=== PATIENT | female | born 1985 | race Hispanic/Latino ===

== ENCOUNTER 2017-07-21 19:40 | Emergency (ER) | payer OTHER ==
[2017-07-21 20:18] LABS: #Basophils 0.1 thou/uL (0.0-0.2); #Eosinphils 0.3 thou/uL (0.0-0.7); #Lymphocytes 2.7 thou/uL (1.20-3.40); #Monocytes 0.5 thou/uL (0.11-0.59); #Neutrophils 4.1 thou/uL (1.40-6.50); %Basophils 1.3 % (0.0-1.0); %Eosinophils 3.5 % (0.0-10.0); %Lymphocytes 35.1 % (21.0-51.0); %Monocytes 6.8 % (0.0-10.0); Hematocrit 39.8 % (36.0-47.0); Mean Platelet Volume 7.6 fL (7.4-10.4); Red Blood Cell (RBC) Count 4.93 mill/uL (4.20-5.40); White Blood Cell (WBC) Count 7.6 thou/uL (4.8-10.8)
[2017-07-21 20:30] LABS: ALT (SGPT) 21 U/L (8-55); AST (SGOT) 21 U/L (5-34); Alkaline Phosphatase 102 U/L (40-150); Anion Gap 14 mmol/L (10-20); BUN (Urea Nitrogen) 10 mg/dL (7.0-18.7); Bilirubin, Total 0.3 mg/dL (0.2-1.2); Calc. Creatinine Clearance 0 mL/min (70-130); Calcium 8.5 mg/dL (7.8-10.44); Carbon Dioxide 22 mmol/L (22-29); Chloride 109 mmol/L (98-107); Estimated GFR-MDRD Greater than 90; Globulin 3.3 g/dL (2.4-3.5); Lipase 31 U/L (8-78); Protein, Total 7.1 g/dL (6.0-8.3)
[2017-07-21 20:31] LABS: Troponin I Less than 0.010 ng/mL (< 0.028)
--- NOTE | 2017-07-21 21:33 | RAD ---
PORTABLE CHEST ONE VIEW 07/21/17 at 8:16 p.m. HISTORY: Syncope. FINDINGS/IMPRESSION: Comparison is made with the exam of 02/19/17. The heart size is enlarged. The lungs are expanded without focal areas of consolidation, pneumothora x, raven pulmonary edema or pleural effusions. IMPRESSION: No acute process. POS: [facility]
[2017-07-21 21:35] LABS: Bilirubin Negative (Negative); Blood, Urine Moderate (Negative); Glucose, Urine (Dipstick) Negative (Negative); Ketone, Urine Negative (Negative); Nitrite Negative (Negative); Protein, Urine (Dipstick) 30 mg/dL (Neg-Trace); Urobilinogen 0.2 mg/dL (0.2-1.0)
[2017-07-21 21:42] LABS: WBC/HPF None Seen HPF (0-3)
[2017-07-21 21:43] LABS: Amphetamine Not Detected (NotDetected); Bacteria/HPF 1+ HPF (None Seen); Methadone Not Detected (NotDetected); Methamphetamine Not Detected (NotDetected)
--- NOTE | 2017-07-21 23:14 | CT ---
CT PULMONARY ANGIOGRAM WITH IV CONTRAST AND 3D POSTPROCESSIN07/21/17 HISTORY: Elevated D-dimer, chest pain, right upper quadrant pain. FINDINGS: There is good contrast opacification of the pulmonary artery vasculature without filling defects to suggest pulmonary embolism. The thoracic aorta is well opacified without aneurysmal dissection. No p leural or pericardial effusions are seen. No pneumothoraces, focal areas of consolidation, or lung m asses are identified. There is subsegmental atelectatic changes in the lower lung kimball. Upper abdo naz tomograms demonstrate changes of cholecystectomy. There are mild degenerative changes in the s pine. IMPRESSION: No CT evidence of pulmonary embolism. POS: [facility]
--- OUTSIDE RECORDS SUMMARY | 2017-07-27 10:26 | XMS | Clinical Summary ---
:1985 Author Organization [facility] Address [address] [place] [address] Phone Care Team Providers Name Role Phone , Primary Care Provider Unavailable Allergies Not on File Current Medications Not on file Active Problems Not on file Social History Tobacco Use Types Packs/Day Years Used Date Never Assessed Sex Assigned at Date Recorded Not on file Last Filed Vital Signs Not on file Plan of Treatment Not on file Results Not on filefrom Last 3 Months
== END 2017-07-21 22:07 | disposition home or self-care (01) ==
LOC: SCSER 19:40
DX: R42 Dizziness and giddiness (principal); G47.30 Sleep apnea, unspecified; K21.9 Gastro-esophageal reflux disease without esophagitis; E11.9 Type 2 diabetes mellitus without complications; I11.0 Hypertensive heart disease with heart failure; I50.9 Heart failure, unspecified; I42.9 Cardiomyopathy, unspecified; Z79.84 Long term (current) use of oral hypoglycemic drugs; Z79.899 Other long term (current) drug therapy
CPT/HCPCS: 71010; 71275; 80053; 80306; 81003; 81015; 81025; 82553; 83690; 83880; 84484; 85025; 85379; 93005

== ENCOUNTER 2017-09-01 22:56 | Emergency (ER) | payer OTHER ==
[2017-09-01] MEDS ORDERED: Acetaminophen/Codeine 30-300mg Tablet ONE (23:27)
[2017-09-01 23:37] LABS: Bilirubin Negative (Negative); Blood, Urine Moderate (Negative); Glucose, Urine (Dipstick) Negative (Negative); Ketone, Urine Negative (Negative); Nitrite Negative (Negative); Protein, Urine (Dipstick) 30 mg/dL (Neg-Trace); Urobilinogen 0.2 mg/dL (0.2-1.0)
[2017-09-01 23:51] LABS: Bacteria/HPF None Seen HPF (None Seen); Hyaline Casts/LPF 0-3 HYALINE CAST LPF (0-3 Hyaline); WBC/HPF 0-3 HPF (0-3)
--- NOTE | 2017-09-02 00:02 | CT ---
CT ABDOMEN AND PELVIS WITHOUT CONTRAST 09/01/17 HISTORY: Pain. COMPARISON: CT stone protocol 09/29/16. FINDINGS: Mild atelectasis in the lung bases. No pericardial effusion. Liver is enlarged. There is mild edema within the proximal small bowel mesentery and increased number of lymph nodes alt emma they were not pathologically enlarged. This is similar. On the right adnexa, is a new cystic structure. There is a large fat containing likely an incisional hernia which is similar. No inflammation. No nep hroureterolithiasis or hydroureteronephrosis. No secondary evidence of recently passed stone. No dilated loops of large or small bowel. The appendix is visualized and is normal. There is moderate degenerative disc space disease at L5-S1 with end plate sclerosis. IMPRESSION: 1. No acute inflammatory process abdomen or pelvis. 2. Similar appearance of the low grade inflammatory stranding of the small bowel mesentery. 3. No nephroureterolithiasis or hydroureteronephrosis. No secondary evidence of a recently passe d stone. 4. Unchanged appearance of the noninflamed fat containing incisional hernia. POS: [facility]
== END 2017-09-02 00:12 | disposition home or self-care (01) ==
LOC: SCSER 22:56
DX: M54.5 Low back pain (principal); E78.5 Hyperlipidemia, unspecified; G47.30 Sleep apnea, unspecified; K21.9 Gastro-esophageal reflux disease without esophagitis; I11.0 Hypertensive heart disease with heart failure; I50.9 Heart failure, unspecified; Z79.899 Other long term (current) drug therapy; Z79.84 Long term (current) use of oral hypoglycemic drugs
CPT/HCPCS: 74176; 81003; 81015; 81025

== ENCOUNTER 2017-10-19 16:18 | Emergency (ER) | payer OTHER ==
[2017-10-19] MEDS ORDERED: Proparacaine 0.5% Opth 15 ML BOT ONE (16:35)
[2017-10-19] MEDS ORDERED: Fluorescein Opthalmic Strip ONE (16:35)
[2017-10-19] MEDS ORDERED: Acetaminophen 500 MG TAB ONE (17:09)
== END 2017-10-19 17:53 | disposition home or self-care (01) ==
LOC: ERS 16:18
DX: H57.12 Ocular pain, left eye (principal); E78.5 Hyperlipidemia, unspecified; E11.9 Type 2 diabetes mellitus without complications; K21.9 Gastro-esophageal reflux disease without esophagitis; I42.9 Cardiomyopathy, unspecified; I11.0 Hypertensive heart disease with heart failure; I50.9 Heart failure, unspecified; G47.30 Sleep apnea, unspecified; Z79.84 Long term (current) use of oral hypoglycemic drugs; Z79.899 Other long term (current) drug therapy
CPT/HCPCS: 99283

== ENCOUNTER 2017-11-05 12:51 | Outpatient (CLI) | payer OTHER ==
--- NOTE | 2017-11-05 14:31 | ULT ---
VENOUS DOPPLER ULTRASOUND OF THE RIGHT LOWER EXTREMITY: Date: 11/05/17 HISTORY: Right lower extremity pain, right leg pain. TECHNIQUE: Duke scale ultrasound with color flow and spectral Doppler imaging of the deep venous systems of the right lower extremity was performed. FINDINGS: There is good flow, compression, and augmentation noted in the right common femoral, femoral, deep fe moral, popliteal, posterior tibial, and greater saphenous veins. IMPRESSION: No evidence of deep venous thrombosis in the right lower extremity. POS: [facility]
== END 2017-11-05 12:52 | disposition home or self-care (01) ==
LOC: ULT 12:51
PROVIDERS: ATTEND Family Medicine
DX: M79.604 Pain in right leg (principal)
CPT/HCPCS: 36415; 85379

== ENCOUNTER 2017-11-09 22:30 | Emergency (ER) | payer OTHER ==
[2017-11-09 22:54] LABS: #Eosinphils 0.3 thou/uL (0.0-0.7); #Lymphocytes 2.7 thou/uL (1.20-3.40); #Monocytes 0.6 thou/uL (0.11-0.59); #Neutrophils 4.8 thou/uL (1.40-6.50); %Basophils 0.3 % (0.0-1.0); %Eosinophils 3.1 % (0.0-10.0); %Lymphocytes 32.2 % (21.0-51.0); %Monocytes 6.6 % (0.0-10.0); %Neutrophils 57.8 % (42.0-75.0); Hemoglobin 13.2 g/dL (12.0-16.0); Mean Corpuscular HGB CONC 34.3 g/dL (32.0-36.0); Mean Corpuscular Hemoglobin 27.4 pg (27.0-31.0); Mean Corpuscular Volume 80.1 fl (81.0-99.0); Mean Platelet Volume 7.8 fL (7.4-10.4); Platelet Count 186 thou/uL (130-400); Red Blood Cell (RBC) Count 4.81 mill/uL (4.20-5.40); White Blood Cell (WBC) Count 8.3 thou/uL (4.8-10.8)
[2017-11-09 23:16] LABS: ALT (SGPT) 18 U/L (8-55); AST (SGOT) 18 U/L (5-34); Albumin 4.1 g/dL (3.5-5.0); Alkaline Phosphatase 116 U/L (40-150); Anion Gap 12 mmol/L (10-20); BUN (Urea Nitrogen) 10 mg/dL (7.0-18.7); Bilirubin, Total 0.2 mg/dL (0.2-1.2); Calc. Creatinine Clearance 0 mL/min (70-130); Calcium 9.5 mg/dL (7.8-10.44); Carbon Dioxide 25 mmol/L (22-29); Chloride 106 mmol/L (98-107); Estimated GFR-MDRD 81; Globulin 3.3 g/dL (2.4-3.5); Glucose 137 mg/dL (70-105); Potassium 4.1 mmol/L (3.5-5.1); Protein, Total 7.4 g/dL (6.0-8.3); Sodium 139 mmol/L (136-145)
[2017-11-09 23:21] LABS: CKMB 3.5 ng/mL (0-6.6); Troponin I Less than 0.010 ng/mL (< 0.028)
--- NOTE | 2017-11-09 23:21 | RAD ---
TWO VIEW CHEST: 11/09/17 HISTORY: Chest pain. The lungs are clear. No infiltrate identified. Heart and mediastinum unremarkable. IMPRESSION: No acute process identified. POS: [facility]
[2017-11-10 01:07] LABS: BHCG - Serum Negative (NEGATIVE); Pregs Control Background? CLEAR/WHITE (CLR/WHITE); Pregs Control Bar Appear? YES (CONTROL BAR)
--- NOTE | 2017-11-10 08:17 | CT ---
PRELIMINARY REPORT/[facility]/EMERGENCY AFTER HOURS PROCEDURE: EXAM: CT Angiography Chest With Intravenous Contrast CLINICAL HISTORY: 32 years old, female; Pain; Chest pain; Patient HX: Er 3; F32 presents to ed C/O cp x3 days. Pt does have a HX of this cp. Pt has had a stress test that was normal and a heart cath many years ago. No HX of mi or stents. Pmhx includes HTN, chf, sleep apnea, gerd, and dm. Denies smoking HX. TECHNIQUE: Axial computed tomographic angiography images of the chest with intravenous contrast using pulmonary embolism protocol. COMPARISON: No relevant prior studies available. FINDINGS: Pulmonary arteries: No pulmonary embolism. Aorta: No acute findings. Lungs: Mild bibasilar atelectasis and/or scarring. Pleural space: Normal. No significant effusion. No pneumothorax. Heart: Mild four-chamber cardiac enlargement. Mediastinum: Small-sized hiatal hernia. Bones/joints: No acute fracture. No dislocation. Soft tissues: Normal. Lymph nodes: Normal. Gallbladder and bile ducts: Gallbladder is surgically absent. IMPRESSION: 1. No pulmonary embolism. 2. Incidental/non-acute findings are described above. Thank you for allowing us to participate in the care of your patient. Dictated and Authenticated by: José Miguel Vergara MD 11/10/2017 2:14 AM Central Time ([place] & [place]) FINAL REPORT CT PULMONARY ANGIOGRAM WITH IV CONTRAST AND 2D POST PROCESSING: I agree with the preliminary report given by Dr. José Miguel Vergara of [facility]. POS: [facility]
[2017-11-10] MEDS ORDERED: ISOVUE-370 76%-LOCM 1 ML ONE (13:08)
--- NOTE | 2018-01-05 15:37 | EKG ---
Test Reason : Blood Pressure : / mmHG Vent. Rate : 075 BPM Atrial Rate : 075 BPM P-R Int : 174 ms QRS Dur : 102 ms QT Int : 384 ms P-R-T Axes : 012 011 039 degrees QTc Int : 428 ms Normal sinus rhythm Cannot rule out Inferior infarct , age undetermined Abnormal ECG Confirmed by NOE BEGUM D.O. ([id number]), copy editor LEO GREENE ([id number]) on 01/05/2018 3:36:54 PM Referred By: Confirmed By:NOE BEGUM D.O.
== END 2017-11-10 03:46 | disposition home or self-care (01) ==
LOC: ERS 22:30
DX: R07.9 Chest pain, unspecified (principal); E78.5 Hyperlipidemia, unspecified; E11.9 Type 2 diabetes mellitus without complications; G47.30 Sleep apnea, unspecified; I42.9 Cardiomyopathy, unspecified; I11.0 Hypertensive heart disease with heart failure; I50.9 Heart failure, unspecified; K21.9 Gastro-esophageal reflux disease without esophagitis; Z79.84 Long term (current) use of oral hypoglycemic drugs; Z79.899 Other long term (current) drug therapy
CPT/HCPCS: 36415; 71046; 71275; 80053; 82553; 84484; 84703; 85025; 85379; 93005

== ENCOUNTER 2018-01-06 13:13 | Emergency (ER) | payer SELFPAY ==
[2018-01-06 13:39] LABS: #Eosinphils 0.1 thou/uL (0.0-0.7); #Lymphocytes 1.9 thou/uL (1.20-3.40); #Monocytes 0.4 thou/uL (0.11-0.59); #Neutrophils 3.7 thou/uL (1.40-6.50); %Lymphocytes 30.8 % (21.0-51.0); %Monocytes 5.8 % (0.0-10.0); %Neutrophils 61.4 % (42.0-75.0); Hemoglobin 12.3 g/dL (12.0-16.0); Mean Corpuscular HGB CONC 34.7 g/dL (32.0-36.0); Mean Corpuscular Hemoglobin 27.4 pg (27.0-31.0); Mean Corpuscular Volume 78.9 fl (81.0-99.0); Mean Platelet Volume 7.1 fL (7.4-10.4); Platelet Count 164 thou/uL (130-400); RBC Distribution Width 13.5 % (11.5-14.5); Red Blood Cell (RBC) Count 4.49 mill/uL (4.20-5.40); White Blood Cell (WBC) Count 6.1 thou/uL (4.8-10.8)
--- NOTE | 2018-01-06 13:48 | RAD ---
PORTABLE CHEST 1 VIEW: Date: 01/06/18 Time: 1325 hours HISTORY: Chest pain. FINDINGS: Comparison made with exam of 07/21/17. The heart size is borderline. No focal areas of consolidation, pneumothorax, raven pulmonary edema, o r pleural effusions are seen. IMPRESSION: No radiographic evidence of acute cardiopulmonary process. POS: [facility]
[2018-01-06 13:55] LABS: Anion Gap 9 mmol/L (10-20); BUN (Urea Nitrogen) 9 mg/dL (7.0-18.7); Calc. Creatinine Clearance 0 mL/min (70-130); Carbon Dioxide 28 mmol/L (22-29); Chloride 106 mmol/L (98-107); Estimated GFR-MDRD Greater than 90; Glucose 128 mg/dL (70-105); Potassium 3.5 mmol/L (3.5-5.1); Sodium 139 mmol/L (136-145)
[2018-01-06 13:58] LABS: CKMB 2.6 ng/mL (0-6.6); Troponin I Less than 0.010 ng/mL (< 0.028)
== END 2018-01-06 14:36 | disposition home or self-care (01) ==
LOC: ERS 13:13
DX: M94.0 Chondrocostal junction syndrome [Tietze] (principal); K21.9 Gastro-esophageal reflux disease without esophagitis; I11.0 Hypertensive heart disease with heart failure; I50.9 Heart failure, unspecified; E78.5 Hyperlipidemia, unspecified
CPT/HCPCS: 36415; 71045; 80048; 82553; 84484; 85025; 93005; 94640; J7620

== ENCOUNTER 2018-01-13 21:04 | Emergency (ER) | payer OTHER ==
[2018-01-13 23:09] LABS: #Eosinphils 0.2 thou/uL (0.0-0.7); #Lymphocytes 2.7 thou/uL (1.20-3.40); #Monocytes 0.7 thou/uL (0.11-0.59); #Neutrophils 5.6 thou/uL (1.40-6.50); %Basophils 0.4 % (0.0-1.0); %Eosinophils 1.7 % (0.0-10.0); %Monocytes 7.6 % (0.0-10.0); %Neutrophils 61.2 % (42.0-75.0); Hemoglobin 12.3 g/dL (12.0-16.0); Mean Corpuscular HGB CONC 34.2 g/dL (32.0-36.0); Mean Corpuscular Hemoglobin 26.9 pg (27.0-31.0); Mean Corpuscular Volume 78.6 fl (81.0-99.0); Platelet Count 186 thou/uL (130-400); RBC Distribution Width 13.7 % (11.5-14.5); Red Blood Cell (RBC) Count 4.57 mill/uL (4.20-5.40); White Blood Cell (WBC) Count 9.2 thou/uL (4.8-10.8)
[2018-01-13 23:30] LABS: ALT (SGPT) 16 U/L (8-55); AST (SGOT) 17 U/L (5-34); Alkaline Phosphatase 93 U/L (40-150); Anion Gap 12 mmol/L (10-20); BUN (Urea Nitrogen) 9 mg/dL (7.0-18.7); Bilirubin, Total 0.4 mg/dL (0.2-1.2); CK (CPK) 191 U/L (29-168); Calc. Creatinine Clearance 0 mL/min (70-130); Calcium 9.1 mg/dL (7.8-10.44); Carbon Dioxide 25 mmol/L (22-29); Chloride 105 mmol/L (98-107); Estimated GFR-MDRD Greater than 90; Glucose 104 mg/dL (70-105); Potassium 3.6 mmol/L (3.5-5.1); Sodium 138 mmol/L (136-145)
[2018-01-13 23:33] LABS: CKMB 2.2 ng/mL (0-6.6); Troponin I Less than 0.010 ng/mL (< 0.028)
--- NOTE | 2018-01-14 00:03 | RAD ---
FRONTAL VIEW CHEST: 01/13/18 COMPARISON: 01/06/18 INDICATION: Chest pain. FINDINGS: The cardiac silhouette is accentuated by portable technique. There is no consolidation, effusion or d iscrete pneumothorax. Chest is similar appearing to 01/06/18. IMPRESSION: No focal consolidation. POS: [facility]
--- NOTE | 2018-02-26 22:13 | EKG ---
Test Reason : Blood Pressure : / mmHG Vent. Rate : 072 BPM Atrial Rate : 072 BPM P-R Int : 188 ms QRS Dur : 098 ms QT Int : 410 ms P-R-T Axes : 019 -13 086 degrees QTc Int : 448 ms Normal sinus rhythm Inferior infarct , age undetermined Possible Anterior infarct , age undetermined Abnormal ECG Confirmed by NOE BEGUM D.O. ([id number]), editor producer LEO GREENE ([id number]) on 02/26/2018 10:13:05 PM Referred By: Confirmed By:NOE BEGUM D.O.
== END 2018-01-14 00:51 | disposition home or self-care (01) ==
LOC: ERS 21:04
DX: R06.02 Shortness of breath (principal); T43.695A Adverse effect of other psychostimulants, initial encounter; I11.0 Hypertensive heart disease with heart failure; I50.9 Heart failure, unspecified; K21.9 Gastro-esophageal reflux disease without esophagitis; E11.9 Type 2 diabetes mellitus without complications; E78.5 Hyperlipidemia, unspecified; G47.30 Sleep apnea, unspecified; Z79.899 Other long term (current) drug therapy; Z79.84 Long term (current) use of oral hypoglycemic drugs
CPT/HCPCS: 36415; 71045; 80053; 82550; 82553; 84484; 85025; 93005; 96360

== ENCOUNTER 2018-01-29 19:51 | Emergency (ER) | payer OTHER ==
[2018-01-29] MEDS ORDERED: Metoclopramide HCl 10 MG TAB ONE (20:22)
[2018-01-29] MEDS ORDERED: Ketorolac Tromethamine 60 MG/2 ML VIAL ONE (20:22)
== END 2018-01-29 20:49 | disposition home or self-care (01) ==
LOC: SCSER 19:51
DX: R11.2 Nausea with vomiting, unspecified (principal); R19.7 Diarrhea, unspecified; K21.9 Gastro-esophageal reflux disease without esophagitis; E11.9 Type 2 diabetes mellitus without complications; I11.0 Hypertensive heart disease with heart failure; I50.9 Heart failure, unspecified; G47.419 Narcolepsy without cataplexy; E78.5 Hyperlipidemia, unspecified; G47.30 Sleep apnea, unspecified; Z79.84 Long term (current) use of oral hypoglycemic drugs; Z79.899 Other long term (current) drug therapy
CPT/HCPCS: 36416; 96372; J1885

== ENCOUNTER 2018-02-09 16:53 | Outpatient (CLI) | payer OTHER | END 2018-02-09 16:54 | disposition home or self-care (01) | LOC: BICRAD 16:53 | PROVIDERS: ATTEND Family Medicine | DX: M79.672 Pain in left foot (principal) ==

== ENCOUNTER 2018-02-10 10:08 | Outpatient (CLI) | payer OTHER | END 2018-02-10 10:09 | disposition home or self-care (01) | LOC: BICRAD 10:08 | PROVIDERS: ATTEND Family Medicine | DX: M79.671 Pain in right foot (principal) ==

== ENCOUNTER 2018-04-14 14:46 | Outpatient (CLI) | payer OTHER | END 2018-04-14 14:47 | disposition home or self-care (01) | LOC: CTENTCT 14:46 | PROVIDERS: ATTEND Otolaryngology Plastic Surgery within the Head & Neck | DX: J32.9 Chronic sinusitis, unspecified (principal) | CPT/HCPCS: 70486 ==

== ENCOUNTER 2018-04-20 07:04 | Day surgery (SDC) | payer OTHER ==
[2018-04-19 15:34] VITALS: BMI 40.4
[2018-04-20] MEDS ORDERED: Oxymetazoline HCl 0.05% ( 15 ML ) ONE ×2 (09:00→09:29)
[2018-04-20] MEDS ORDERED: Lidocaine 1% w/Epinephrine 1:100K 30 ML VIAL ONE (09:29)
[2018-04-20] MEDS ORDERED: Fentanyl 100 MCG/2 ML VIAL ONE ×3 (09:35→10:51)
[2018-04-20 09:43] LABS: BHCG - Serum Negative (NEGATIVE); Pregs Control Background? CLEAR/WHITE (CLR/WHITE); Pregs Control Bar Appear? YES (CONTROL BAR)
[2018-04-20] MEDS ORDERED: HYDROcodone/Acetaminophen 5/325 mg Tablet ONE (12:09)
--- NOTE | 2018-04-20 15:53 | OP ---
DATE OF PROCEDURE: 04/20/2018 PREOPERATIVE DIAGNOSES: 1. Chronic rhinosinusitis. 2. Bilateral inferior turbinate hypertrophy. 3. Nasal obstruction. POSTOPERATIVE DIAGNOSES: 1. Chronic rhinosinusitis. 2. Bilateral inferior turbinate hypertrophy. 3. Nasal obstruction. PROCEDURES: 1. Bilateral endoscopic sinus surgery, total ethmoidectomies. 2. Bilateral endoscopic sinus surgery, maxillary antrostomies. 3. Bilateral endoscopic sinus surgery, frontal sinusotomies. 4. Bilateral endoscopic sinus surgery, sphenoidotomies. 5. Bilateral inferior turbinate submucosal resection. SURGEON: Jin Hassan M.D. ESTIMATED BLOOD LOSS: 20 mL COMPLICATIONS: None. ANESTHESIA: GETA. PROCEDURE IN DETAIL: The patient was taken to the operating room and placed supine on the table. Ge neral endotracheal anesthesia was obtained by the Anesthesia staff. Tube was secured in the left low er lip. Following this, the patient was placed in the beach chair position. Afrin pledgets were gabriella victorina in the nasal cavity as the patient was prepped and draped for standard nasal procedure. Followin g this, the 0-degree scope was then advanced in the nasal cavity. 1% lidocaine with 1:100,000 epinep hrine was injected into the middle turbinate, uncinate process and inferior turbinates bilaterally. Following this, the middle turbinates were gently lateralized with a Ridgefield elevator providing access to the sphenoid sinus ostia area. The superior turbinate was visualized bilaterally. The natural sp henoid ostia was completely stenotic. There was purulence and redness in the area where it should alcantara ve been. A Arias tip suction was used to create a sphenoidotomy bilaterally. Following this, the straight microdebrider was used to create and widen sphenoidotomies medially and inferiorly. This wa s performed bilaterally. Thick mucus and pus was noted in the sphenoid sinuses bilaterally, which wa s then irrigated. Following this, the middle turbinate was gently medialized with a Ridgefield elevator. The uncinate process was then anteriorly fractured using the ball-ended probe and was removed bilate rally using a microdebrider and upbiting Blakesley forceps. Following this, the natural maxillary si nus ostia was identified and was gently widened using the 0-degree microdebrider and the curved micro debrider. Following this, the ethmoidal bulla was identified and was punctured on its medial and inf erior aspect with the microdebrider and then was removed completely with the microdebrider and the up biting Blakesley forceps. Following this, the grand lamella was identified and it was punctured into the posterior ethmoidal cells. Working from posterior to anterior, the ethmoidal cells were opened in a mucosal-sparing technique. Following this, 45-degree endoscope and the curved microdebrider wer e used to further dissect and open the frontal sinus ostia bilaterally. Following this, the inferior turbinates were punctured on the anterior inferior aspect and submucosal resection was performed of the anterior inferior portions of the inferior turbinates bilaterally. The patient tolerated the pro cedure well.
== END 2018-04-20 12:34 | disposition home or self-care (01) ==
LOC: SDC 07:04
PROVIDERS: ATTEND Otolaryngology Plastic Surgery within the Head & Neck
PROC: 09BS8ZZ Excision of Right Frontal Sinus, Via Natural or Artificial Opening Endoscopic (ICD-10-PCS; principal; 2018-04-20)
PROC: 09BL8ZZ Excision of Nasal Turbinate, Via Natural or Artificial Opening Endoscopic (ICD-10-PCS; principal; 2018-04-20)
PROC: 099R8ZZ Drainage of Left Maxillary Sinus, Via Natural or Artificial Opening Endoscopic (ICD-10-PCS; principal; 2018-04-20)
PROC: 09TV8ZZ Resection of Left Ethmoid Sinus, Via Natural or Artificial Opening Endoscopic (ICD-10-PCS; principal; 2018-04-20)
PROC: 09BT8ZZ Excision of Left Frontal Sinus, Via Natural or Artificial Opening Endoscopic (ICD-10-PCS; principal; 2018-04-20)
PROC: 099Q8ZZ Drainage of Right Maxillary Sinus, Via Natural or Artificial Opening Endoscopic (ICD-10-PCS; principal; 2018-04-20)
PROC: 09TU8ZZ Resection of Right Ethmoid Sinus, Via Natural or Artificial Opening Endoscopic (ICD-10-PCS; principal; 2018-04-20)
DX: J32.4 Chronic pansinusitis (principal); J34.3 Hypertrophy of nasal turbinates; J34.89 Other specified disorders of nose and nasal sinuses; E11.9 Type 2 diabetes mellitus without complications; I10 Essential (primary) hypertension; G47.00 Insomnia, unspecified; E66.9 Obesity, unspecified; K21.9 Gastro-esophageal reflux disease without esophagitis; Z79.52 Long term (current) use of systemic steroids; Z79.899 Other long term (current) drug therapy; Z79.84 Long term (current) use of oral hypoglycemic drugs; Z88.8 Allergy status to other drugs, medicaments and biological substances; Z68.41 Body mass index [BMI] 40.0-44.9, adult
CPT/HCPCS: 36415; 84703; 85014; 96374; J2001; J3010

== ENCOUNTER 2018-06-01 14:39 | Outpatient (CLI) | payer OTHER | END 2018-06-01 14:40 | disposition home or self-care (01) | LOC: BICULT 14:39 | PROVIDERS: ATTEND Family Medicine | DX: R10.2 Pelvic and perineal pain (principal) | CPT/HCPCS: 76856 ==

== ENCOUNTER 2018-06-28 13:08 | Emergency (ER) | payer OTHER ==
[2018-06-28 13:53] LABS: #Eosinphils 0.2 thou/uL (0.0-0.7); #Lymphocytes 2.3 thou/uL (1.20-3.40); #Monocytes 0.3 thou/uL (0.11-0.59); #Neutrophils 3.6 thou/uL (1.40-6.50); %Basophils 0.2 % (0.0-1.0); %Eosinophils 3.2 % (0.0-10.0); %Lymphocytes 35.7 % (21.0-51.0); %Neutrophils 55.9 % (42.0-75.0); Hemoglobin 12.3 g/dL (12.0-16.0); Mean Corpuscular HGB CONC 32.3 g/dL (32.0-36.0); Mean Corpuscular Hemoglobin 24.4 pg (27.0-31.0); Mean Corpuscular Volume 75.5 fL (78.0-98.0); Mean Platelet Volume 8.5 fL (7.4-10.4); Platelet Count 206 thou/uL (130-400); RBC Distribution Width 14.5 % (11.5-14.5); Red Blood Cell (RBC) Count 5.03 mill/uL (4.20-5.40); White Blood Cell (WBC) Count 6.4 thou/uL (4.8-10.8)
[2018-06-28 14:22] LABS: Troponin I Less than 0.010 ng/mL (< 0.028)
[2018-06-28 14:23] LABS: ALT (SGPT) 26 U/L (8-55); AST (SGOT) 31 U/L (5-34); Albumin 4.1 g/dL (3.5-5.0); Alkaline Phosphatase 102 U/L (40-150); Anion Gap 14 mmol/L (10-20); BUN (Urea Nitrogen) 10 mg/dL (7.0-18.7); Bilirubin, Total 0.5 mg/dL (0.2-1.2); CK (CPK) 189 U/L (29-168); Calc. Creatinine Clearance 0 mL/min (70-130); Calcium 8.7 mg/dL (7.8-10.44); Carbon Dioxide 23 mmol/L (22-29); Chloride 106 mmol/L (98-107); Estimated GFR-MDRD 79; Globulin 3.4 g/dL (2.4-3.5); Glucose 132 mg/dL (70-105); Potassium 3.7 mmol/L (3.5-5.1); Protein, Total 7.5 g/dL (6.0-8.3); Sodium 139 mmol/L (136-145)
--- NOTE | 2018-06-28 14:26 | RAD ---
CHEST ONE VIEW PORTABLE: History: 33-year-old female with history of chest pain and left arm pain for 7 days. Comparison: 04-07-18 FINDINGS: Monitor leads overlie the chest. Heart size is within normal limits. The lungs are clear. IMPRESSION: No acute intrathoracic disease. POS: [facility]
--- NOTE | 2018-06-29 17:02 | EKG ---
Test Reason : Blood Pressure : / mmHG Vent. Rate : 079 BPM Atrial Rate : 079 BPM P-R Int : 180 ms QRS Dur : 102 ms QT Int : 404 ms P-R-T Axes : 032 009 182 degrees QTc Int : 463 ms Normal sinus rhythm Possible Left atrial enlargement Cannot rule out Anterior infarct , age undetermined Abnormal ECG Confirmed by KEVIN GARCIA, DR. Lazar ([id number]) on 06/29/2018 5:01:57 PM Referred By: Confirmed By:DR. Cady BROWN MD
== END 2018-06-28 15:50 | disposition home or self-care (01) ==
LOC: ERS 13:08
DX: R07.9 Chest pain, unspecified (principal); K21.9 Gastro-esophageal reflux disease without esophagitis; E11.9 Type 2 diabetes mellitus without complications; I11.0 Hypertensive heart disease with heart failure; I50.9 Heart failure, unspecified; E78.5 Hyperlipidemia, unspecified; G47.30 Sleep apnea, unspecified; F41.9 Anxiety disorder, unspecified; F32.9 Major depressive disorder, single episode, unspecified
CPT/HCPCS: 71045; 80053; 82553; 84484; 85025; 93005; 94760

== ENCOUNTER 2018-08-15 07:29 | Outpatient (CLI) | payer OTHER ==
[2018-08-15 08:06] LABS: Estimated GFR-MDRD - POC Greater than 90
--- NOTE | 2018-08-15 10:58 | MRI ---
MRI PELVIS WITH AND WITHOUT CONTRAST: HISTORY: R10.2, pelvic pain. COMPARISON: CT 09/01/2017. FINDINGS: The previously seen large right ovarian cyst has resolved. Small right ovarian follicles. Mildly pr ominent left external lymph node, although not overtly abnormally pathologically enlarged. A small nabothian cyst of the cervix. scar of lower anterior uterine body. The junctional zone appears to be normal. No r1lwilopgei zone cyst formation. No significant fibroi ds. There is no abnormal enhancement of the endometrial cavity. IMPRESSION: 1. Interval resolution of right ovarian cyst. 2. Similar appearance large left-sided fat-containing incisional hernia without evidence of ischemia . 3. No abnormal myometrial or endometrial mass. POS: [facility]
[2018-08-15] MEDS ORDERED: Gadobenate Dimeglumine 529 MG/1 ML (20ML VIAL) ONE (12:37)
== END 2018-08-15 07:30 | disposition home or self-care (01) ==
LOC: BICMRI 07:29
PROVIDERS: ATTEND Family Medicine
DX: R10.2 Pelvic and perineal pain (principal); K43.2 Incisional hernia without obstruction or gangrene
CPT/HCPCS: 72197; 82565; A9579

== ENCOUNTER 2018-11-02 17:40 | Observation (INO) | payer OTHER ==
[2018-11-02] MEDS ORDERED: Nitroglycerin 2% Ointment 1 INCH/1 GM Packet ONE (18:14)
[2018-11-02] MEDS ORDERED: Furosemide 40 MG/4 ML VIAL ONE (18:14)
[2018-11-02 18:42] LABS: #Eosinphils 0.2 thou/uL (0.0-0.7); #Lymphocytes 2.4 thou/uL (1.20-3.40); #Monocytes 0.6 thou/uL (0.11-0.59); #Neutrophils 5.3 thou/uL (1.40-6.50); %Basophils 0.5 % (0.0-1.0); %Eosinophils 2.7 % (0.0-10.0); %Lymphocytes 27.9 % (21.0-51.0); %Monocytes 6.7 % (0.0-10.0); %Neutrophils 62.2 % (42.0-75.0); Mean Corpuscular Hemoglobin 23.8 pg (27.0-31.0); Mean Corpuscular Volume 74.4 fL (78.0-98.0); Mean Platelet Volume 8.7 fL (7.4-10.4); Platelet Count 220 thou/uL (130-400); RBC Distribution Width 14.8 % (11.5-14.5); Red Blood Cell (RBC) Count 5.06 mill/uL (4.20-5.40); White Blood Cell (WBC) Count 8.5 thou/uL (4.8-10.8)
[2018-11-02 18:53] LABS: ALT (SGPT) 15 U/L (8-55); AST (SGOT) 19 U/L (5-34); Alkaline Phosphatase 90 U/L (40-150); Anion Gap 12 mmol/L (10-20); BUN (Urea Nitrogen) 9 mg/dL (7.0-18.7); Bilirubin, Total 0.3 mg/dL (0.2-1.2); Calc. Creatinine Clearance 0 mL/min (70-130); Calcium 9.2 mg/dL (7.8-10.44); Carbon Dioxide 26 mmol/L (22-29); Chloride 106 mmol/L (98-107); Estimated GFR-MDRD Greater than 90; Globulin 3.1 g/dL (2.4-3.5); Glucose 86 mg/dL (70-105); Potassium 3.7 mmol/L (3.5-5.1); Protein, Total 7.1 g/dL (6.0-8.3); Sodium 140 mmol/L (136-145)
--- NOTE | 2018-11-02 19:47 | RAD ---
FRONTAL VIEW CHEST: 11/02/18 COMPARISON: 06/28/18. INDICATION: Dyspnea. FINDINGS: There are interstitial opacities of the lower lung zones bilaterally. Cardiac silhouette is stable. N o effusion or pneumothorax. IMPRESSION: Bibasilar linear densities which may be related to atelectasis versus pneumonitis. Correlate clinical ly. Imaging following may be obtained as necessary. POS: [facility]
[2018-11-02 20:45] LABS: BHCG - Serum Negative (NEGATIVE); Pregs Control Background? CLEAR/WHITE (CLR/WHITE); Pregs Control Bar Appear? YES (CONTROL BAR)
[2018-11-02] MEDS ORDERED: Morphine 4 MG/ML VIAL ONE (20:56)
[2018-11-02] MEDS ORDERED: Acetaminophen 500 MG TAB ONE (20:56)
[2018-11-02] MEDS ORDERED: Nitroglycerin 0.4 MG TAB 1 EACH ONE (21:33)
[2018-11-02 23:01] LABS: Troponin I Less than 0.010 ng/mL (< 0.028)
[2018-11-02] MEDS ORDERED: Ondansetron ODT 4 MG TAB PO PRN (23:06)
[2018-11-02] MEDS ORDERED: Acetaminophen 325 MG TAB PO PRN (23:06)
[2018-11-02] MEDS ORDERED: Benzonatate 100 MG CAP PO PRN (23:08)
[2018-11-02] MEDS ORDERED: PROVENTIL INHALER 6.7 G (200 INHALATIONS) INH PRN (23:08)
[2018-11-02] MEDS ORDERED: Dextrose 5% in Water 1,000 ML IV PRN (23:09)
[2018-11-02] MEDS ORDERED: Dextrose 50% Abboject 50 ML SYRINGE SLOW IVP PRN (23:09)
[2018-11-02] MEDS ORDERED: HumaLOG 300 UNITS/3 ML VIAL SC PRN (23:09)
[2018-11-02 23:58] VITALS: BMI 39.2
[2018-11-03 01:09] LABS: Troponin I Less than 0.010 ng/mL (< 0.028)
--- NOTE | 2018-11-03 02:06 | HP ---
PRIMARY CARE DOCTOR: Dr. Felicia Fox. CODE STATUS: Full code. TIME OF EVALUATION: 10:40 p.m. CHIEF COMPLAINT: Exertional chest pain and shortness of breath. HISTORY OF PRESENT ILLNESS: This is a 33-year-old female patient with past medical history of multiple comorbidities including GERD, diabetes type 2, hypertension, peptic ulcer, CHF, narcolepsy, hyperlipidemia, sleep apnea, cardiomyopathy started after cardiomyopathy, follows with Dr. Hilario. The patient came to the hospital after having chest pain that was in the upper left area, radiating to the left arm, pain has been on for the past few hours, worse with exertion, improved with rest. Symptoms are reported as 6/10 in intensity. Symptoms are constant, associated with weakness. REVIEW OF SYSTEMS: CONSTITUTIONAL: No fever, chills, or generalized weakness. RESPIRATORY: No cough, sputum production. Shortness of breath only with exertion. CARDIOVASCULAR: Shortness of breath with exertion, chest pain with exertion, improved with rest palpitations. GASTROINTESTINAL: No nausea, no vomiting, diarrhea, or abdominal pain. PERFECT BIND MACHINE OPERATOR: No dizziness, headache, or feeling lightheaded. GENITOURINARY: No burning on urination. EXTREMITIES: No leg swelling. All other systems were reviewed and negative except for the findings mentioned above. PAST MEDICAL HISTORY: As mentioned in the HPI. FAMILY HISTORY: Father has heart problem. SOCIAL HISTORY: Lives with family at home. No drugs. No alcohol. No smoking history. PSYCH HISTORY: History of anxiety and depression. PAST SURGICAL HISTORY: x4, ectopic , salpingectomy with one ovary. KNOWN ALLERGIES: To ibuprofen, mustard, and sour cream. REPORTED MEDICATION: Not updated. The patient reported being compliant with medication. PHYSICAL EXAMINATION: VITAL SIGNS: On presentation, blood pressure 155/112 with heart rate 74, respiratory rate was 20, temperature 98.4, pain is 8/10, oxygen saturation 99 on room air. GENERAL APPEARANCE: The patient is alert and oriented, not in acute distress. HEENT: Eyes normal conjunctivae. Moist oral mucosa. Anicteric. No JVD. RESPIRATORY: Bilateral air entry. No rales. No wheezing. Symmetric expansion. CARDIOVASCULAR: Normal rate, regular rhythm. No murmurs, no gallops, no edema. ABDOMEN: Soft, normal bowel sounds. MUSCULOSKELETAL: Baseline range of motion and strength. No tenderness. SKIN: Warm, intact. No pallor. No rash. No redness. VASCULAR: Peripheral pulses are brisk. Capillary refill seems to be intact. NEURO: No evidence of any new focal weakness. Baseline speech. Cranial nerves seems to be intact. PSYCH: The patient is in good mood. No anxiety. Optimal judgment. DIAGNOSTIC STUDIES: EKG was reviewed. The patient has normal sinus rhythm with a rate of 71 with DE 176, prolonged QT of 469, QRS 102. Chest x-ray, bibasilar linear densities which may be related to atelectasis versus pneumonitis, correlate clinically can be obtained as necessary. LABORATORY DATA: Labs were reviewed. The patient has white count 8.5, hemoglobin 12, MCV 74.4, platelet count of 220. Chemistry; sodium 140, potassium 3.7, chloride 106, carbon dioxide 26, anion gap 12, BUN 9, creatinine 0.68, GFR greater than 90, glucose 86, calcium 9.2, total bilirubin 0.3, AST 19, ALT 15, alkaline phosphatase 90. Troponin was negative x2. Beta natriuretic peptide 27.5. Serum total protein 7.1, albumin 4.0, globulin 3.1, albumin to globulin ratio is 1.3. Serum qualitative was negative. ASSESSMENT AND PLAN: The patient will be placed in the hospital with following medical problems: 1. Possible underlying congestive heart failure exacerbation versus coronary artery disease. The patient has strong medical history and risk factors, with high pretest probability for stress test. She reported that she cannot tolerate the stress test because of the sudden onset of shortness of breath; we will consult Dr. Hilario for any further recommendation for further workup given the patient's concerns. Reconcile home medications once updated. 2. Controlled diabetes which was 86. We will place the patient on a sliding scale for optimal control. 3. Uncontrolled blood pressure. The patient presented with systolic 155 and diastolic 112, reconcile home medications, might need IV p.r.n. medications for optimal control. 4. History of gastroesophageal reflux disease. We will start home medications once updated. No report of patient having CHF on the chest x-ray. 5. Possible pneumonitis reported on the x-ray. There is no any other evidence of infection at this point. We will monitor, start antibiotics if the patient has spiking fevers or SIRS signs develop. 6. Hyperlipidemia, low-cholesterol diet is advised, reconcile home medications once updated. 7. Deep venous thrombosis prophylaxis. Job ID: [id number]
[2018-11-03 06:42] LABS: #Eosinphils 0.2 thou/uL (0.0-0.7); #Lymphocytes 2.2 thou/uL (1.20-3.40); #Monocytes 0.5 thou/uL (0.11-0.59); #Neutrophils 4.7 thou/uL (1.40-6.50); %Basophils 0.2 % (0.0-1.0); %Eosinophils 2.9 % (0.0-10.0); %Lymphocytes 29.1 % (21.0-51.0); %Monocytes 7.1 % (0.0-10.0); %Neutrophils 60.8 % (42.0-75.0); Hemoglobin 11.6 g/dL (12.0-16.0); Mean Corpuscular HGB CONC 32.5 g/dL (32.0-36.0); Mean Corpuscular Hemoglobin 24.2 pg (27.0-31.0); Mean Corpuscular Volume 74.6 fL (78.0-98.0); Mean Platelet Volume 8.3 fL (7.4-10.4); Platelet Count 206 thou/uL (130-400); RBC Distribution Width 14.8 % (11.5-14.5); White Blood Cell (WBC) Count 7.7 thou/uL (4.8-10.8)
[2018-11-03 07:03] LABS: Anion Gap 16 mmol/L (10-20); BUN (Urea Nitrogen) 12 mg/dL (7.0-18.7); Calc. Creatinine Clearance 177 mL/min (70-130); Calcium 9.1 mg/dL (7.8-10.44); Carbon Dioxide 25 mmol/L (22-29); Chloride 105 mmol/L (98-107); Estimated GFR-MDRD Greater than 90; Glucose 96 mg/dL (70-105); Potassium 3.5 mmol/L (3.5-5.1); Sodium 142 mmol/L (136-145)
[2018-11-03] MEDS ORDERED: Furosemide 20 MG TAB PO SCH (09:00)
[2018-11-03] MEDS: Amlodipine 5 MG TAB PO SCH (09:02)
[2018-11-03] MEDS: Atorvastatin Calcium 10 MG TAB PO SCH (09:02)
[2018-11-03] MEDS: Spironolactone 25 MG TAB PO SCH (09:03)
[2018-11-03] MEDS: Meloxicam 15 MG TAB PO SCH (09:03)
[2018-11-03] MEDS: Lisinopril 20 MG TAB PO SCH ×2 (09:04→20:59)
[2018-11-03] MEDS: busPIRone HCl 10 MG TAB PO SCH ×3 (09:04→20:59)
[2018-11-03] MEDS: Fluticasone Propionate Nasal Spray 16 gm Bottle NASAL SCH (09:04)
[2018-11-03] MEDS: Ketotifen Fumarate 0.025% Ophth Soln 5 ml Bottle EA EYE SCH ×2 (09:05→20:59)
[2018-11-03] MEDS: Enoxaparin Sodium 40 MG/0.4 ML SYRINGE SC SCH (09:05)
[2018-11-03] MEDS: Furosemide 40 MG/4 ML VIAL SLOW IVP SCH (09:05)
[2018-11-03] MEDS ORDERED: Regadenoson 0.4 MG/5 ML SYRINGE ONE (09:22)
--- NOTE | 2018-11-03 10:22 | PDOC.PN ---
- Subjective Encounter Start Date: 11/03/18 Encounter Start Time: 10:20 Ms. Baltazar was seen today in follow-up of chest pain. She says her level of her chest pain is about a 6/10. - Objective Resuscitation Status - Order Detail: 11/02/18 23:06 Resuscitation Status Routine Resuscitation Status: FULL: Full Resuscitation MAR Reviewed: Yes Vital Signs & Weight: Vital Signs (12 hours) Temp Pulse Resp BP Pulse Ox 11/03/18 07:18 97.2 F L 69 20 110/69 95 11/03/18 05:10 97.7 F 64 16 110/55 L 97 11/02/18 23:35 98.4 F 86 18 145/69 H 98 Weight Weight 220 lb 4.8 oz I&O: 11/02/18 11/03/18 11/04/18 06:59 06:59 06:59 Intake Total 400 Output Total 600 Balance -200 Result Diagrams: 11/03/18 06:30 11/03/18 06:30 Additional Labs: Accuchecks 11/02/18 23:55 POC Glucose 115 H Phys Exam - Physical Examination HEENT: PERRLA Respiratory: no wheezing, no rales, no rhonchi, clear to auscultation bilateral Cardiovascular: RRR, no significant murmur, no rub Gastrointestinal: soft, non-tender, no distention, positive bowel sounds Musculoskeletal: no edema, pulses present Dx/Plan (1) Chest pain Code(s): R07.9 - CHEST PAIN, UNSPECIFIED Status: Acute (2) Diabetes mellitus Code(s): E11.9 - TYPE 2 DIABETES MELLITUS WITHOUT COMPLICATIONS Status: Chronic (3) Hypertension Code(s): I10 - ESSENTIAL (PRIMARY) HYPERTENSION Status: Chronic Comment: well controlled - Plan * Chest pain- ? etiology. She has risk factors for CAD. She tells me that she is able to do a stress test- will order * Cardiology has also been consulted * HTN- blood pressure is stable * DM - blood glucose is stable.
[2018-11-03] MEDS: Carvedilol 25 MG TAB PO SCH ×2 (10:23→18:12)
[2018-11-03] MEDS: Ondansetron PF 4 MG/2 ML Vial IVP PRN ×2 (11:12→15:38)
--- NOTE | 2018-11-03 16:31 | NM ---
NUCLEAR MEDICINE CARDIAC MYOCARDIAL PERFUSION SPECT EJECTION FRACTION STUDY WALL MOTION CINE: 11/03/18 HISTORY: 33-year-old female with history of congestive heart failure, hypertension, dyslipidemia, diabetes nadege litus and family history of coronary artery disease, presents with chest pain. TECHNIQUE: Number of days: One Rest study: Tc99m sestamibi (Cardiolite): Not administered. This was a stress only study. Pharmacologic stress: Lexiscan dose: 0.4 mg Stress study: Tc99m sestamibi (Cardiolite) dose: 28.8 mCi FINDINGS: CARDIAC (MYOCARDIAL PERFUSION) SPECT No definite left ventricular myocardial perfusion defect identified. EJECTION FRACTION STUDY EF = 53% WALL MOTION CINE Inferior wall is mildly hypokinetic. IMPRESSION: No convincing evidence of myocardial ischemia or infarction. LEVON Sutton POS: [facility]
--- NOTE | 2018-11-03 17:44 | CON ---
DATE OF CONSULTATION: 11/03/2018 REASON FOR CONSULTATION: Chest pain. HISTORY OF PRESENT ILLNESS: Ms. Baltazar is a very pleasant 33-year-old female, who comes to the hospital for chest pain. She has had chest pain for the last 2 to 3 days. She states that it is constant there, really gets worse with any movement, sometimes with exertion, staying still makes it better. She has had this pain before several times in the past. She has known cardiomyopathy, where her EF was down to about 30% to 35%, eventually it improved to normal. Last echo was done about 2 years ago and her EF was normal at that time at 50% to 55%. She has had several episodes of chest pain. She also had a negative heart catheterization in the recent past. She admits to ongoing chest pain at the time of my evaluation, which is atypical. PAST MEDICAL HISTORY: 1. Type 2 diabetes. 2. Hypertension. 3. GERD. 4. History of nonischemic cardiomyopathy . 5. Narcolepsy. 6. Hyperlipidemia. 7. Sleep apnea. PAST SURGICAL HISTORY: 1. x4. 2. Ectopic . 3. Salpingectomy with one ovary. SOCIAL HISTORY: No alcohol, tobacco, or drugs. FAMILY HISTORY: Father has severe coronary artery disease in his 70s. OUTPATIENT MEDICATIONS: 1. Fluticasone. 2. Norvasc 5 mg a day. 3. Carvedilol 25 b.i.d. 4. Atorvastatin 10 mg q.a.m. 5. Albuterol inhaler. 6. Lisinopril 20 mg b.i.d. 7. Vitamin D3. 8. Omeprazole. 9. Olopatadine eye drops. 10. Meloxicam. 11. Aldactone 50 mg a day. 12. Xyrem. 13. Zoloft. 14. Glucophage 500 mg b.i.d. 15. BuSpar 10 mg t.i.d. ALLERGIES: IBUPROFEN UPSETS STOMACH, MUSTARD, AND SOUR CREAM. REVIEW OF SYSTEMS: A 12-point review of systems was done and was found to be negative unless stated in the history of present illness. PHYSICAL EXAMINATION: VITAL SIGNS: Temperature 97.3, pulse 78, respiratory rate 18, saturating 97% on room air, blood pressure 130/63. GENERAL: Awake, alert, and oriented x3. No distress. HEENT: Normocephalic and atraumatic. NECK: Supple. LUNGS: Clear. CARDIOVASCULAR: S1, S2. No S3 or S4. Distant heart sounds. No murmurs or rubs. ABDOMEN: Soft. Positive bowel sounds. EXTREMITIES: No edema. SKIN: Warm and dry. LABORATORY DATA: Laboratory work was reviewed. CBC with a white count of 8.5, hemoglobin of 12, hematocrit of 37, platelet count of 220. Chemistry was unremarkable except for glucose of 115. Troponin is completely undetectable x3. BNP was completely normal at 27. test was negative. Albumin was 4.0. Chest x-ray was unremarkable. ASSESSMENT AND PLAN: 1. Atypical chest pain. 2. History of nonischemic cardiomyopathy . 3. Normalized EF on last echo in 2017. PLAN: 1. Symptoms are atypical for angina. She has had a complete normal heart catheterization about 3 or 4 years ago and has chronic episodes of chest pain and had several stress tests since. Because she is having ongoing chest pain, we will plan on doing a stress test to further risk stratify, most likely this will be negative, but this will also let us know what her EF is and hopefully it will remain normal. 2. If stress is negative, she may be discharged home later today. Thank you for letting me to participate in the care of your patient. Job ID: [id number]
[2018-11-04 08:17] VITALS: TEMP 97.8
[2018-11-04] MEDS: Meloxicam 15 MG TAB PO SCH (09:32)
[2018-11-04] MEDS: Carvedilol 25 MG TAB PO SCH (09:33)
[2018-11-04] MEDS: busPIRone HCl 10 MG TAB PO SCH (09:33)
[2018-11-04] MEDS: Lisinopril 20 MG TAB PO SCH (09:33)
[2018-11-04] MEDS: Amlodipine 5 MG TAB PO SCH (09:33)
[2018-11-04] MEDS: Fluticasone Propionate Nasal Spray 16 gm Bottle NASAL SCH (09:34)
[2018-11-04] MEDS: Furosemide 40 MG/4 ML VIAL SLOW IVP SCH (09:34)
[2018-11-04] MEDS: Spironolactone 25 MG TAB PO SCH (09:34)
[2018-11-04] MEDS: Atorvastatin Calcium 10 MG TAB PO SCH (09:34)
[2018-11-04] MEDS: Enoxaparin Sodium 40 MG/0.4 ML SYRINGE SC SCH (09:35)
[2018-11-04] MEDS: Ketotifen Fumarate 0.025% Ophth Soln 5 ml Bottle EA EYE SCH (09:35)
[2018-11-04 09:39] VITALS: BP 121/60
[2018-11-04 10:04] LABS: Cardiac Risk 4.2 (Less than 4.5)
--- NOTE | 2018-11-04 15:27 | PDOC.PN ---
- Subjective Encounter Start Date: 11/04/18 Encounter Start Time: 12:00 Ms. Baltazar was seen today in follow-up. She says she fels much better. She is not currently experiencing chest pain. - Objective Resuscitation Status - Order Detail: 11/02/18 23:06 Resuscitation Status Routine Resuscitation Status: FULL: Full Resuscitation MAR Reviewed: Yes Vital Signs & Weight: Vital Signs (12 hours) Temp Pulse Resp BP BP Pulse Ox 11/04/18 09:33 61 121/60 11/04/18 07:32 97.8 F 61 20 104/58 L 98 11/04/18 04:24 98.1 F 63 16 110/53 L 98 Weight Weight 220 lb 9.6 oz I&O: 11/03/18 11/04/18 11/05/18 06:59 06:59 06:59 Intake Total 400 994 Output Total 600 2550 Balance -200 -1556 Result Diagrams: 11/03/18 06:30 11/03/18 06:30 Additional Labs: Accuchecks 11/04/18 11/03/18 11/03/18 06:22 20:44 17:41 POC Glucose 114 H 142 H 169 H Phys Exam - Physical Examination HEENT: PERRLA Respiratory: no wheezing, no rales, no rhonchi, clear to auscultation bilateral Cardiovascular: RRR, no significant murmur, no rub Gastrointestinal: soft, non-tender, no distention, positive bowel sounds Musculoskeletal: no edema Dx/Plan (1) Chest pain Code(s): R07.9 - CHEST PAIN, UNSPECIFIED Status: Acute (2) Diabetes mellitus Code(s): E11.9 - TYPE 2 DIABETES MELLITUS WITHOUT COMPLICATIONS Status: Chronic (3) Hypertension Code(s): I10 - ESSENTIAL (PRIMARY) HYPERTENSION Status: Chronic Comment: well controlled - Plan * Chest pain- resolved- likely non-cardiac * She is stable for discharge home.
== END 2018-11-04 12:30 | disposition home or self-care (01) ==
LOC: ERS 17:40 → 2SW 22:13
PROVIDERS: ADMIT Hospitalist; ATTEND Hospitalist
DX: R07.89 Other chest pain (principal); I10 Essential (primary) hypertension; E11.9 Type 2 diabetes mellitus without complications; K21.9 Gastro-esophageal reflux disease without esophagitis; K27.9 Peptic ulcer, site unspecified, unspecified as acute or chronic, without hemorrhage or perforation; G47.419 Narcolepsy without cataplexy; E78.5 Hyperlipidemia, unspecified; G47.30 Sleep apnea, unspecified; F41.9 Anxiety disorder, unspecified; F32.9 Major depressive disorder, single episode, unspecified; Z90.721 Acquired absence of ovaries, unilateral; Z88.6 Allergy status to analgesic agent; Z91.018 Allergy to other foods; Z79.51 Long term (current) use of inhaled steroids; Z79.1 Long term (current) use of non-steroidal anti-inflammatories (NSAID); Z79.84 Long term (current) use of oral hypoglycemic drugs; Z79.899 Other long term (current) drug therapy; Z98.890 Other specified postprocedural states
CPT/HCPCS: 36415; 36416; 71045; 78452; 80048; 80053; 80061; 83880; 84484; 84703; 85025; 93005; 93017; 93306; 94760; 96372; 96374; 96375; 96376; A9500; G0378; J1650; J1940; J2270; J2405; J2785

== ENCOUNTER 2018-11-04 12:23 | Outpatient (CLI) | payer OTHER ==
[2018-11-04 14:51] LABS: #Eosinphils 0.1 thou/uL (0.0-0.7); #Lymphocytes 2.2 thou/uL (1.20-3.40); #Monocytes 0.6 thou/uL (0.11-0.59); %Basophils 0.1 % (0.0-1.0); %Eosinophils 1.5 % (0.0-10.0); %Lymphocytes 21.9 % (21.0-51.0); %Monocytes 6.4 % (0.0-10.0); %Neutrophils 70.2 % (42.0-75.0); Mean Corpuscular HGB CONC 32.2 g/dL (32.0-36.0); Mean Corpuscular Hemoglobin 24.1 pg (27.0-31.0); Mean Corpuscular Volume 74.8 fL (78.0-98.0); Mean Platelet Volume 8.6 fL (7.4-10.4); Platelet Count 251 thou/uL (130-400)
[2018-11-04 15:46] LABS: Anion Gap 13 mmol/L (10-20); BUN (Urea Nitrogen) 21 mg/dL (7.0-18.7); Calc. Creatinine Clearance 0 mL/min (70-130); Calcium 9.2 mg/dL (7.8-10.44); Carbon Dioxide 27 mmol/L (22-29); Chloride 105 mmol/L (98-107); Estimated GFR-MDRD 49; Glucose 106 mg/dL (70-105); Potassium 3.5 mmol/L (3.5-5.1); Sodium 141 mmol/L (136-145)
--- NOTE | 2018-11-04 16:36 | EKG ---
Test Reason : Blood Pressure : / mmHG Vent. Rate : 069 BPM Atrial Rate : 069 BPM P-R Int : 180 ms QRS Dur : 100 ms QT Int : 444 ms P-R-T Axes : 040 061 232 degrees QTc Int : 475 ms Normal sinus rhythm Possible Anterior infarct , age undetermined Abnormal ECG When compared with ECG of 02-NOV-2018 17:54, (Unconfirmed) No significant change was found Confirmed by KEVIN GARCIA, . SMacy ([id number]) on 11/04/2018 4:36:21 PM Referred By: LORA Confirmed By:DR. Cady BROWN MD
== END 2018-11-04 12:24 | disposition home or self-care (01) ==
LOC: LABBT 12:23
PROVIDERS: ATTEND Orthopaedic Surgery
DX: Z01.818 Encounter for other preprocedural examination (principal); K43.2 Incisional hernia without obstruction or gangrene
CPT/HCPCS: 80048; 85025; 93005; 93010

== ENCOUNTER 2018-11-09 06:56 | Day surgery (SDC) | payer OTHER ==
[2018-11-04 12:56] VITALS: BMI 39.1
--- NOTE | 2018-11-08 09:36 | HP ---
HISTORY OF PRESENT ILLNESS: The patient is a 33-year-old female with a greater than 6-month history of pain and tingling in both hands in the median nerve distribution without injury. She has had persistent symptoms despite restriction of activities and splinting. The pain is worse at night and is interfering with day-to-day activities. She was seen by Dr. Mireles 6 months ago who recommended surgery at that time, but she tried to avoid it, but has continued to have progressive symptoms despite conservative treatment. PAST MEDICAL HISTORY: The patient has a history of hypertension, diabetes, sleep apnea, and cardiomyopathy. She was hospitalized last week for an episode of chest pain, but cardiac workup was negative, and it was thought to be noncardiac in origin, and her chest pain has resolved. CURRENT MEDICATIONS: Include, 1. Lisinopril. 2. Metformin. 3. Xyrem. 4. Carvedilol. 5. Buspirone. 6. Omeprazole. 7. Sertraline. 8. Spironolactone. 9. Lipitor. 10. Albuterol. 11. Amlodipine. ALLERGIES: SHE IS ALLERGIC TO IBUPROFEN WHICH CAUSES AN UPSET STOMACH. FAMILY HISTORY: Otherwise unremarkable. REVIEW OF SYSTEMS: Otherwise unremarkable. PHYSICAL EXAMINATION: GENERAL: Healthy female. HEENT: Unremarkable. NECK: Supple. CHEST: Clear. HEART: Regular rate and rhythm. ABDOMEN: Soft and nontender. PELVIC: Deferred. RECTAL: Deferred. BREASTS: Deferred. EXTREMITIES: Pertinent findings related to both wrists; there is a definite thenar atrophy. There is no obvious swelling. There is a piece that has firm but not hard prominence on the dorsal aspect of her left wrist which is minimally tender. There is full range of motion. There is slight weakness with opposition of the thumb bilaterally. There is a positive Tinel sign and negative Phalen test bilaterally. Subjective numbness in the median nerve distribution bilaterally. There are good distal pulses. DIAGNOSTIC DATA: X-rays of both wrists are negative. Electrodiagnostic studies performed by Dr. Mireles revealed [id number] bilateral carpal tunnel syndrome, left slightly worse than right. IMPRESSION: Bilateral carpal tunnel syndrome. PLAN: Endoscopic, possible open bilateral carpal tunnel release. The nature of the surgery, length of recovery, and potential complications such as infection, loss of motion, incomplete relief, nerve injury, recurrence, and need for additional treatment and repeat surgery were discussed in detail. Job ID: [id number]
[~2018-11-09 06:56] MED LIST: Bupivacaine PF 0.5% 30 ML VIAL ONE; Lidocaine 1% (PF) 30 ML VIAL ONE
[2018-11-09] MEDS ORDERED: Lidocaine 2% 11 ML SYR ONE (06:57)
[2018-11-09] MEDS ORDERED: CEFAZOLIN 2 GM/50 ML BAG ONE (07:05)
[2018-11-09] MEDS ORDERED: EPINEPHrine 1 MG/ML AMP ONE (07:08)
[2018-11-09] MEDS ORDERED: Fentanyl 100 MCG/2 ML VIAL ONE ×3 (08:59→09:42)
[2018-11-09] MEDS ORDERED: HYDROcodone/Acetaminophen 5/325 mg Tablet ONE (10:33)
[2018-11-09] MEDS ORDERED: Lidocaine 1% PF 5 ML VIAL ONE (12:00)
[2018-11-09] MEDS ORDERED: Rocuronium Bromide 10 MG/ML (10ML VIAL) ONE (12:00)
[2018-11-09] MEDS ORDERED: Dexamethasone 20 MG/5 ML VIAL ONE (12:00)
[2018-11-09] MEDS ORDERED: PROPOFOL 200 MG/20 ML VIAL ONE (12:00)
[2018-11-09] MEDS ORDERED: Glycopyrrolate 0.2 MG/ML 5 ML SYRINGE ONE (12:00)
[2018-11-09] MEDS ORDERED: Metoclopramide HCl 10 MG/2 ML VIAL ONE (12:00)
--- NOTE | 2018-11-09 13:26 | OP ---
DATE OF PROCEDURE: 11/09/2018 ANESTHESIA: General. PREOPERATIVE DIAGNOSIS: Bilateral carpal tunnel syndrome. POSTOPERATIVE DIAGNOSIS: Bilateral carpal tunnel syndrome. PROCEDURE PERFORMED: Bilateral endoscopic carpal tunnel release. DESCRIPTION OF PROCEDURE: After satisfactory anesthesia was induced in supine position, the patient was prepped and draped in routine manner. The right wrist was addressed first. The right arm was elevated and exsanguinated with Esmarch bandage and the tourniquet inflated to 250 mmHg. A 2-cm transverse incision was made in the proximal wrist flexion crease, carried down through the subcutaneous tissues. Bleeding points were controlled with Bovie cautery. Using sharp and blunt dissection, a distally based flap at the deep forearm fascia was developed and retracted distally. The palmaris longus tendon was retracted radially. Proximal edge of the deep forearm fascia was split under direct visualization with small incision to make sure there was no proximal impingement of the median nerve. Synovial elevator was introduced beneath the transverse carpal ligament and the synovium cleaned from the under surface. Carpal tunnel dilators were inserted. The Yadioe endoscopic carpal tunnel system was introduced beneath the transverse carpal ligament in line with ring finger. The distal edge of the ligament was easily identified and then divided in a distal to proximal direction by pulling the trigger of the assembly and engaging the knife and withdrawing the scope proximally. This was done at several stages to make sure there was complete division of the transverse carpal ligament, which was documented with the video printer. After withdrawing the scope, the carpal tunnel dilator could be inserted into the carpal tunnel and there were markedly improved passage and subcutaneous position of the instrument. The tourniquet was released after 4 minutes. There was no excessive bleeding. The wound was thoroughly irrigated and closed with running subcuticular 3-0 nylon. Sterile dressing was applied and the patient was immobilized in a Velcro wrist splint. Attention was then directed to the left wrist and an identical procedure was then performed on this side with the tourniquet time being 5 minutes. She was awakened and taken to recovery room in stable condition. There were no apparent intraoperative complications. The estimated blood loss was negligible. The patient will be discharged home in satisfactory condition with an ice elevation and given written wound care instructions. She was given a prescription for [place] 5 for pain, 36 tablets. She will be rechecked in my office in 10 to 14 days or sooner if there are any problems prior to that time. Job ID: [id number]
== END 2018-11-09 11:10 | disposition home or self-care (01) ==
LOC: SDC 06:56
PROVIDERS: ATTEND Orthopaedic Surgery
PROC: 01N54ZZ Release Median Nerve, Percutaneous Endoscopic Approach (ICD-10-PCS; principal; 2018-11-09)
DX: G56.03 Carpal tunnel syndrome, bilateral upper limbs (principal); I10 Essential (primary) hypertension; E11.9 Type 2 diabetes mellitus without complications; G47.30 Sleep apnea, unspecified; I42.9 Cardiomyopathy, unspecified; K21.9 Gastro-esophageal reflux disease without esophagitis; E66.9 Obesity, unspecified; F41.9 Anxiety disorder, unspecified; F32.9 Major depressive disorder, single episode, unspecified; J32.3 Chronic sphenoidal sinusitis; J35.1 Hypertrophy of tonsils; Z79.84 Long term (current) use of oral hypoglycemic drugs; Z79.899 Other long term (current) drug therapy; Z88.6 Allergy status to analgesic agent; Z91.018 Allergy to other foods; Z68.39 Body mass index [BMI] 39.0-39.9, adult
CPT/HCPCS: 36416; J0171; J1100; J2001; J2704; J2765; J3010; S0020

== ENCOUNTER 2018-11-14 17:19 | Outpatient (CLI) | payer OTHER ==
[2018-11-14 17:40] LABS: #Eosinphils 0.3 thou/uL (0.0-0.7); #Lymphocytes 3.1 thou/uL (1.20-3.40); #Monocytes 0.5 thou/uL (0.11-0.59); #Neutrophils 5.8 thou/uL (1.40-6.50); %Basophils 0.4 % (0.0-1.0); %Eosinophils 2.7 % (0.0-10.0); %Lymphocytes 31.8 % (21.0-51.0); %Monocytes 5.4 % (0.0-10.0); %Neutrophils 59.7 % (42.0-75.0); Hemoglobin 12.8 g/dL (12.0-16.0); Mean Corpuscular Hemoglobin 24.2 pg (27.0-31.0); Mean Corpuscular Volume 75.7 fL (78.0-98.0); Platelet Count 224 thou/uL (130-400); RBC Distribution Width 15.1 % (11.5-14.5); Red Blood Cell (RBC) Count 5.28 mill/uL (4.20-5.40); White Blood Cell (WBC) Count 9.7 thou/uL (4.8-10.8)
[2018-11-14 17:49] LABS: BHCG - Serum Negative (NEGATIVE); Pregs Control Background? CLEAR/WHITE (CLR/WHITE); Pregs Control Bar Appear? YES (CONTROL BAR)
[2018-11-14 17:59] LABS: Anion Gap 13 mmol/L (10-20); BUN (Urea Nitrogen) 12 mg/dL (7.0-18.7); Calc. Creatinine Clearance 0 mL/min (70-130); Calcium 9.5 mg/dL (7.8-10.44); Carbon Dioxide 22 mmol/L (22-29); Chloride 106 mmol/L (98-107); Estimated GFR-MDRD 88; Glucose 90 mg/dL (70-105); Potassium 3.9 mmol/L (3.5-5.1); Sodium 137 mmol/L (136-145)
== END 2018-11-14 17:20 | disposition home or self-care (01) ==
LOC: LABBT 17:19
PROVIDERS: ATTEND Specialist
DX: Z01.812 Encounter for preprocedural laboratory examination (principal); K43.2 Incisional hernia without obstruction or gangrene
CPT/HCPCS: 80048; 84703; 85025

== ENCOUNTER 2018-11-18 06:24 | Day surgery (SDC) | payer OTHER ==
[2018-11-14 17:36] VITALS: BMI 39.4
[2018-11-18] MEDS ORDERED: Fentanyl 100 MCG/2 ML VIAL ONE ×3 (06:36→10:16)
[2018-11-18] MEDS ORDERED: Bupivacaine HCl 0.5%/Epinephrine 1:200,000/PF 30 ml Vial ONE (06:44)
[2018-11-18] MEDS ORDERED: Ketorolac Tromethamine 30 MG/ML VIAL ONE (06:51)
--- NOTE | 2018-11-18 07:19 | HP ---
HISTORY OF PRESENT ILLNESS: Brina Baltazar is a 33-year-old female, recent had an MRI of the pelvis on 08/15/2018, revealing a large left-sided fat containing incisional hernia without evidence of ischemia. This is located in the lower scar. 11/02/2018, nuclear medicine stress test, 53% cardiac ejection fraction without ischemia findings. The patient is asymptomatic from a cardiac standpoint. Plan is for robotic mesh repair of incisional hernia, lower abdomen. She understands risks and benefits of the procedure and consents. The patient has been followed by Dr. Mccormick in the past, recently saw Dr. Hilario who states she is safe to proceed with surgery without further evaluation. The patient has a nonischemic mild cardiomyopathy. MEDICATIONS: 1. Lisinopril twice a day. 2. Metformin twice a day. 3. Sodium oxybate twice a day. 4. Carvedilol 25 mg twice a day. 5. Buspirone three times a day. 6. Omeprazole 20 mg a day. 7. Sertraline 100 mg a day. 8. Spironolactone 50 mg once a day. 9. Atorvastatin 10 mg a day. 10. Albuterol sulfate p.r.n. 11. Amlodipine 5 mg daily. 12. Aspirin 81 mg a day. PAST MEDICAL HISTORY: Diabetes mellitus, type 2; sleep apnea, uses CPAP, diagnosed in September 2016; hypertension; nonischemic cardiomyopathy, EF 20% to 25%, last echo in November 2017; GERD; obesity; narcolepsy; anxiety; depression; chronic hand pain, wrist pain. ALLERGIES: IBUPROFEN, UPSETS STOMACH. PAST SURGICAL HISTORY: Laparoscopic cholecystectomy, , tubal ligation, with unilateral oophorectomy, carpal tunnel release. No prior history of EGD, Zeeshan and Ben. Peptic ulcer disease. Colonoscopy recently, normal. REVIEW OF SYSTEMS: A 10-point noncontributory. PHYSICAL EXAMINATION: VITAL SIGNS: 63 inches, 223 pounds, 120/95, 75, 98.8 degrees. HEAD, EARS, EYES, NOSE, AND THROAT: Unremarkable. LUNGS: Clear to auscultation. CARDIAC: Regular rate and rhythm without murmur or gallop. ABDOMEN: Soft and nontender. Lower abdomen, left to midline, reveals incisional hernia between the umbilicus and pubis. PLAN: Robotic repair using mesh for this incisional hernia. Risks of infection, bleeding, and reoperation discussed, she consents. Job ID: [id number]
--- NOTE | 2018-11-18 10:21 | OP ---
DATE OF PROCEDURE: 11/18/2018 PREOPERATIVE DIAGNOSES: Obesity, incisional hernia from Pfannenstiel scar, left suprapubic. POSTOPERATIVE DIAGNOSES: Obesity, incisional hernia from Pfannenstiel scar, left suprapubic. PROCEDURE PERFORMED: Robotic laparoscopic adhesiolysis with incisional hernia repair and reinforcement of fascial closure with 11 cm round Ventralight mesh. ANESTHESIA: General, local 0.5% Marcaine with epinephrine 30 mL. Note, Balderas was placed at the beginning of the procedure and removed at the end. DESCRIPTION OF PROCEDURE: The patient was taken to the operating room under general anesthesia, abdomen was prepared with ChloraPrep and draped in routine fashion. Local anesthetic was infiltrated into the skin and subcutaneous tissue about the port site. Supraumbilical incision was made and pneumoperitoneum to 15 mmHg obtained with a Veress needle, replaced with an 11 port balloon catheter. Lateral mid abdominal incision was made bilaterally. An 8-mm port was placed and the robot was docked and adhesiolysis carried out in the pelvis, freeing omental adhesions from around the hernia defect, which measured about 4 cm. Abundant amount of omentum reduced from the hernia defect using cautery for hemostasis. Once this defect was decompressed, pneumoperitoneum reduced to 11 mmHg and fascial defect closed with to and fro sutures of #1 and 0 V-Loc suture. Once this was completely closed, Ventralight mesh 11 cm round, placed over defect with the diameter skewed to the anterior abdominal wall to avoid the bladder. Mesh secured with continuous suture of 2-0 V-Loc suture. Once this was complete, good hernia repair and reinforcement appreciated. Good hemostasis noted. All needles retrieved. Pneumoperitoneum reduced. All instruments were removed. All skin incisions were approximated with interrupted subdermal 4-0 Monocryl and [place] glue applied. Job ID: [id number]
[2018-11-18] MEDS ORDERED: Nitroglycerin 0.4 MG TAB (25 Tab Bottle) ONE (11:38)
[2018-11-18] MEDS ORDERED: HYDROcodone/Acetaminophen 5/325 mg Tablet ONE (12:20)
[2018-11-18] MEDS ORDERED: PHENYLEPHRINE-NS 100 MCG/ML 10 ML SYRINGE ONE (16:19)
[2018-11-18] MEDS ORDERED: Glycopyrrolate 0.2 MG/ML 5 ML SYRINGE ONE (16:19)
[2018-11-18] MEDS ORDERED: PROPOFOL 200 MG/20 ML VIAL ONE (16:19)
[2018-11-18] MEDS ORDERED: Lidocaine 1% PF 5 ML VIAL ONE (16:19)
[2018-11-18] MEDS ORDERED: Succinylcholine Chloride 20 MG/ML 10 ml SYRINGE FS ONE (16:19)
[2018-11-18] MEDS ORDERED: ePHEDrine 50 MG/ML VIAL ONE (16:19)
[2018-11-18] MEDS ORDERED: Ondansetron PF 4 MG/2 ML Vial ONE (16:19)
[2018-11-18] MEDS ORDERED: Rocuronium Bromide 10 MG/ML (10ML VIAL) ONE (16:19)
== END 2018-11-18 13:20 | disposition home or self-care (01) ==
LOC: SDC 06:24
PROVIDERS: ATTEND Specialist
PROC: 0WUF4JZ Supplement Abdominal Wall with Synthetic Substitute, Percutaneous Endoscopic Approach (ICD-10-PCS; principal; 2018-11-18)
DX: K43.2 Incisional hernia without obstruction or gangrene (principal); E66.9 Obesity, unspecified; Z68.39 Body mass index [BMI] 39.0-39.9, adult; I10 Essential (primary) hypertension; I42.0 Dilated cardiomyopathy; E11.9 Type 2 diabetes mellitus without complications; F32.9 Major depressive disorder, single episode, unspecified; F41.9 Anxiety disorder, unspecified; K21.9 Gastro-esophageal reflux disease without esophagitis; G47.419 Narcolepsy without cataplexy; G47.30 Sleep apnea, unspecified; Z99.89 Dependence on other enabling machines and devices; Z88.6 Allergy status to analgesic agent; Z90.49 Acquired absence of other specified parts of digestive tract; Z90.721 Acquired absence of ovaries, unilateral; Z98.51 Tubal ligation status; Z91.018 Allergy to other foods; Z79.1 Long term (current) use of non-steroidal anti-inflammatories (NSAID); Z79.51 Long term (current) use of inhaled steroids; Z79.84 Long term (current) use of oral hypoglycemic drugs; Z79.82 Long term (current) use of aspirin; Z79.899 Other long term (current) drug therapy; Z98.890 Other specified postprocedural states
CPT/HCPCS: 36416; 93005; 93010; C1781; J0131; J0670; J1885; J2001; J2405; J2704; J3010; J3490

== ENCOUNTER 2018-11-28 23:07 | Inpatient (IN) | payer OTHER ==
[2018-11-29] MEDS ORDERED: Ondansetron PF 4 MG/2 ML Vial ONE ×2 (00:29→05:26)
[2018-11-29 00:52] LABS: #Basophils 0.1 thou/uL (0.0-0.2); #Eosinphils 0.8 thou/uL (0.0-0.7); #Lymphocytes 2.8 thou/uL (1.20-3.40); #Monocytes 0.5 thou/uL (0.11-0.59); #Neutrophils 5.1 thou/uL (1.40-6.50); %Basophils 1.5 % (0.0-1.0); %Eosinophils 8.4 % (0.0-10.0); %Lymphocytes 30.2 % (21.0-51.0); %Monocytes 5.6 % (0.0-10.0); %Neutrophils 54.3 % (42.0-75.0); Anisocytosis SLIGHT = 6-15 cells (100X) (0-5/hpf); Hemoglobin 10.9 g/dL (12.0-16.0); MDiff Complete? YES; Mean Corpuscular HGB CONC 32.4 g/dL (32.0-36.0); Mean Corpuscular Hemoglobin 23.6 pg (27.0-31.0); Mean Platelet Volume 7.2 fL (7.4-10.4); Microcytosis SLIGHT = 6-15 cells (100X) (0-5/hpf); Platelet Count 213 thou/uL (130-400); RBC Distribution Width 14.9 % (11.5-14.5); Red Blood Cell (RBC) Count 4.62 mill/uL (4.20-5.40); White Blood Cell (WBC) Count 9.4 thou/uL (4.8-10.8)
[2018-11-29 01:06] LABS: ALT (SGPT) 12 U/L (8-55); AST (SGOT) 13 U/L (5-34); Albumin 3.8 g/dL (3.5-5.0); Alkaline Phosphatase 88 U/L (40-150); Anion Gap 14 mmol/L (10-20); BUN (Urea Nitrogen) 13 mg/dL (7.0-18.7); Bilirubin, Total 0.2 mg/dL (0.2-1.2); Calc. Creatinine Clearance 0 mL/min (70-130); Calcium 8.8 mg/dL (7.8-10.44); Carbon Dioxide 23 mmol/L (22-29); Chloride 108 mmol/L (98-107); Estimated GFR-MDRD Greater than 90; Globulin 3.2 g/dL (2.4-3.5); Glucose 114 mg/dL (70-105); Lipase 34 U/L (8-78); Potassium 3.5 mmol/L (3.5-5.1); Sodium 141 mmol/L (136-145)
[2018-11-29 01:25] LABS: BHCG - Serum Negative (NEGATIVE); Pregs Control Background? CLEAR/WHITE (CLR/WHITE); Pregs Control Bar Appear? YES (CONTROL BAR)
[2018-11-29] MEDS ORDERED: Morphine 4 MG/ML VIAL ONE (04:57)
[2018-11-29] MEDS ORDERED: Piperacillin/Tazobactam 4.5 GM VIAL ONE (05:19)
[2018-11-29] MEDS ORDERED: Sodium Chloride 0.9% 0 ML ONE (05:21)
[2018-11-29] MEDS ORDERED: Fentanyl 100 MCG/2 ML VIAL ONE (06:28)
--- NOTE | 2018-11-29 06:55 | RAD ---
SINGLE VIEW CHEST: HISTORY: Weakness and dizziness for three days. COMPARISON: 11/02/2018 FINDINGS: Single view of the chest show normal sized cardiomediastinal silhouette. There is no evidence of cons olidation, mass, or pleural effusion. The bones are unremarkable. IMPRESSION: No evidence of acute cardiopulmonary disease. POS: [facility]
--- NOTE | 2018-11-29 08:18 | HP ---
CHIEF COMPLAINT: Severe abdominal pain. HISTORY OF PRESENT ILLNESS: This is a 33-year-old female, who underwent a laparoscopic robotic assisted ventral hernia repair by Dr. Sahu on November 19, mesh was placed. She says that for the last 3 days she has been having nausea and vomiting and last night she developed worsening abdominal pain, no fever. Last bowel movement was yesterday. PAST MEDICAL HISTORY: 1. Morbid obesity. 2. Sleep apnea. 3. Hypertension. 4. Hyperlipidemia. 5. Cardiomyopathy. 6. Narcolepsy. 7. Diabetes. PAST SURGICAL HISTORY: 1. Sinus surgery. 2. Carpal tunnel surgery. 3. Cholecystectomy. 4. section. 5. Ventral hernia repair. MEDICATIONS: Include: 1. Coreg. 2. Lasix. 3. Lisinopril. 4. Metformin. 5. Omeprazole. 6. Atorvastatin. 7. Buspirone. 8. Carvedilol. 9. Fluconazole. 10. Meloxicam. 11. Spironolactone. ALLERGIES: SHE HAS A SENSITIVITY TO IBUPROFEN. SOCIAL HISTORY: She is , unemployed. No tobacco or alcohol. FAMILY HISTORY: Diabetes and heart disease. PHYSICAL EXAMINATION: VITAL SIGNS: Temperature is 99, pulse 86, blood pressure 153/104, morbidly obese female, in pain, writhing around. HEENT: Otherwise unremarkable. LUNGS: Clear. HEART: Regular rate and rhythm. ABDOMEN: Obese, soft, diffusely moderate, mildly tender. No peritoneal signs. LABORATORY DATA: Her white count is 9.4, H and H 10 and 35, platelet count 213. Electrolytes are fine. Elevated glucose at 114. She had a CT scan of the abdomen showing a large fluid collection in the lower abdomen. ASSESSMENT: 1. Seroma. 2. Nausea. 3. Vomiting. 4. Poor pain control. PLAN: Admit, bowel rest, pain control. I talked to Dr. Soares who will assume care for Dr. Sahu until he gets back. Job ID: [id number]
--- NOTE | 2018-11-29 09:23 | CT ---
PRELIMINARY REPORT/[facility]/EMERGENTY AFTER-HOURS PROCEDURE CT Abdomen and Pelvis With Contrast EXAM DATE/TIME: 11/29/2018 2:03 AM CLINICAL HISTORY: 33 years old, female; Pain; Abdominal pain; Prior surgery; Surgery date: <1 month; Surgery type: Nacho ia repair; Patient HX: F33 presents to ed with C/O dizziness/weakness x3 days. Patient reports having 2 surgeries on 11/18/18 for abdominal hernia repair (reports unknown what kind), bilateral capel tunnel release surgery. Patient reports left forearm pain likely associated with use after surg kat (patient reports that she is supposed to wear bilateral braces but does not). Patient reports inc ident upper left chest pain with radiation to left arm, described as constant since yesterday. Patien t reports possible association with anxiety. Patient reports associated nausea, with vomiting and po intolerance, and abdominal distention. Patient reports incident vaginal bleeding, soaking through 5 maxi pads per day, reports passing clots. Patient reports that she is worried she is loosing too much blood, denies history of such happening. 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 Patient reports other surgical history of gallbladder removal, 1 emergency c-se TECHNIQUE: Axial computed tomography images of the abdomen and pelvis with intravenous contrast. Coronal reforma tted images were created and reviewed. COMPARISON: No relevant prior studies available. FINDINGS: Lower thorax: Mild right lower lung atelectasis or parenchymal scarring. No pleural fluid. ABDOMEN: Liver: Unremarkable. Gallbladder and bile ducts: Prior cholecystectomy, no significant biliary tree dilation. Pancreas: Unremarkable. Spleen: Unremarkable. Adrenals: Unremarkable. Kidneys and ureters: Unremarkable. Stomach and bowel: There are no CT findings to strongly suggest diverticulitis. Appendix: The appendix is visualized and appears normal. PELVIS: Bladder: Unremarkable as visualized. Reproductive: Unremarkable as visualized. No definite abnormal mass or fluid collection in the pelvis . ABDOMEN and PELVIS: Intraperitoneal space: No free air, ascites, or bowel distention. Bones/joints: No significant acute finding. Soft tissues: Very small umbilical hernia, 12-13 mm in diameter, containing only fat. Small oblong fl uid collection in the left infraumbilical abdominal wall, measuring 3.0 x 1.4 x 2.0 centimeters. Mild stranding in the fat adjacent to the fluid collection. Etiology is not specific. Possibilities would include postoperative hematoma, seroma, and abscess. No definite gas within the f luid to strongly suggest infection. Please correlate clinically. Larger intra-abdominal fluid collect ion anteriorly, beneath the abdominal wall, at about the level of the umbilicus. This fluid collectio n measures 8 x 5 x 8 cm, and is of relatively low attenuation. Etiology is not specific. Possibilitie s would include hematoma, seroma, and abscess. No definite gas within the fluid. Vasculature: No evidence for abdominal aortic aneurysm. Lymph nodes: No retroperitoneal adenopathy. IMPRESSION: 1. 8 x 5 x 8 cm intra-abdominal fluid collection in the lower abdomen, details above. 3 x 1.4 x 2 cm left lower abdominal wall fluid collection, details above. Possible etiologies would include hematoma , seroma, and abscess. 2. No free air or bowel distention. No evidence for bowel obstruction. 3. Normal appendix. 4. Other findings discussed above. Thank you for allowing us to participate in the care of your patient. Dictated and Authenticated by: Wally Pathak MD 11/29/2018 3:00 AM Central Time ([place] & [place]) FINAL REPORT EMERGENT AFTER HOURS STUDY CT ABDOMEN AND PELVIS WITH CONTRAST: FINDINGS/IMPRESSION: I agree with the findings and impression given in the preliminary report, per [facility] physician. There is a fluid collection along the anterior aspect of the peritoneal cavity, and there is an addit ional fluid collection in the lower abdominal wall, adjacent to this fluid collection. This could re present a hematoma or abscess. Correlate with white blood cell count.
[2018-11-29 10:01] VITALS: BMI 36.3
[2018-11-29] MEDS: Fentanyl 100 MCG/2 ML VIAL SLOW IVP PRN ×4 (10:35→21:32)
[2018-11-29] MEDS: Sodium Chloride 0.45% 1,000 ML IV SCH ×2 (10:38→17:52)
[2018-11-30] MEDS: Fentanyl 100 MCG/2 ML VIAL SLOW IVP PRN ×2 (05:54→09:00)
[2018-11-30] MEDS: Ondansetron PF 4 MG/2 ML Vial SLOW IVP PRN (08:45)
[2018-11-30] MEDS ORDERED: Ondansetron ODT 4 MG TAB PO PRN (14:11)
[2018-11-30] MEDS ORDERED: Ondansetron ODT 8 MG TAB SL PRN (14:11)
[2018-11-30] MEDS ORDERED: Ondansetron ODT 8 MG TAB PO PRN (14:11)
[2018-11-30] MEDS ORDERED: Ondansetron ORAL SOLN. 4 MG/5 ML UDCUP PO PRN ×2 (14:11)
[2018-11-30] MEDS ORDERED: Acetaminophen 500 MG TAB PO PRN (14:12)
[2018-11-30] MEDS ORDERED: Dextrose 5% in Water 1,000 ML IV PRN (14:15)
[2018-11-30] MEDS ORDERED: Dextrose 50% Abboject 50 ML SYRINGE SLOW IVP PRN (14:15)
[2018-11-30] MEDS ORDERED: HumaLOG 300 UNITS/3 ML VIAL SC PRN (14:15)
--- NOTE | 2018-11-30 14:48 | PRG ---
DATE OF SERVICE: 11/30/2018 SUBJECTIVE: Brina Baltazar is a 33-year-old female, admitted by Dr. Soto in coverage. The patient is status post laparoscopic robotic on 11/18/2018, Pfannenstiel left lower quadrant incisional hernia repair with mesh reinforcement. She had a large hernia sac. The patient has done well since her operation initially, but 2 to 3 days prior to this admission, began having upper abdominal discomfort. She states that her suprapubic area in the area of her hernia repair has not been hurting and is not hurting now. She complains of pain in her upper abdomen. She has had a prior cholecystectomy. She is morbidly obese. The patient is admitted, had a CAT scan without oral, but with IV contrast, demonstrating [id number] constipation, fluid collection in the old hernia sac, left lower abdomen, probably postoperative changes in her lower abdomen, nothing acute. She has been afebrile. Her white count is normal. She complains to have pain, has required fentanyl analgesics parenteral. On admission, her basic metabolic profile is normal, glucose 114, white count 9.4, hemoglobin 10.9, differential unremarkable. OBJECTIVE: LUNGS: Clear to auscultation. CARDIAC: Regular rate and rhythm without murmur or gallop. ABDOMEN: Soft. Mild tenderness in her upper abdomen. No peritoneal signs. EXTREMITIES: Unremarkable. Laparoscopic wounds look good. ASSESSMENT AND PLAN: Abdominal pain, probably postoperatively, although there are no indications of postoperative abscess. We would not start intravenous antibiotics. Her white count is normal. She is afebrile. The findings on the CAT scan are probably normal postoperative changes after robotic incisional hernia repair with mesh. We would resume her home medications, start her on full liquids, increase her activity, and start her on oral PPI, and start her on Reglan IV. I suspect that she may have some degree of gastroparesis accounting for her nausea and vomiting of onset in the last 2 days without any other signs of infection, without fever, without leukocytosis. Observe her clinically, IV fluids, and when she is tolerating liquids, we will saline lock her. We may need to repeat her CAT scan, pending her clinical course. If we do repeat her CAT scan, we will obtain it with both oral and IV contrast as the admission CAT scan in ER did not have oral contrast. Job ID: [id number]
[2018-11-30] MEDS ORDERED: Magnesium Citrate 300 ML BOT PO SCH (15:30)
[2018-11-30] MEDS: busPIRone HCl 10 MG TAB PO SCH ×2 (15:33→20:26)
[2018-11-30] MEDS: traMADol HCl 50 MG TAB PO PRN ×2 (15:33→23:26)
[2018-11-30] MEDS: Lactated Ringer's 1,000 ML IV SCH ×2 (15:34→23:27)
[2018-11-30] MEDS: Lisinopril 20 MG TAB PO SCH (20:26)
[2018-11-30] MEDS: Ketotifen Fumarate 0.025% Ophth Soln 5 ml Bottle EA EYE SCH (20:26)
[2018-11-30] MEDS: Enoxaparin Sodium 40 MG/0.4 ML SYRINGE SC SCH (20:26)
[2018-11-30] MEDS: Carvedilol 25 MG TAB PO SCH (20:27)
[2018-12-01] MEDS: traMADol HCl 50 MG TAB PO PRN ×3 (04:27→20:35)
[2018-12-01 07:01] LABS: Hemoglobin A1c 5.4 % (4.0-6.0)
[2018-12-01 07:03] LABS: #Basophils 0.1 thou/uL (0.0-0.2); #Eosinphils 0.5 thou/uL (0.0-0.7); #Lymphocytes 2.9 thou/uL (1.20-3.40); #Monocytes 0.5 thou/uL (0.11-0.59); #Neutrophils 3.5 thou/uL (1.40-6.50); %Basophils 0.9 % (0.0-1.0); %Lymphocytes 39.1 % (21.0-51.0); %Monocytes 6.2 % (0.0-10.0); %Neutrophils 46.8 % (42.0-75.0); Hemoglobin 9.8 g/dL (12.0-16.0); Mean Corpuscular HGB CONC 32.1 g/dL (32.0-36.0); Mean Corpuscular Hemoglobin 23.9 pg (27.0-31.0); Mean Corpuscular Volume 74.6 fL (78.0-98.0); Mean Platelet Volume 7.8 fL (7.4-10.4); Platelet Count 209 thou/uL (130-400); RBC Distribution Width 14.8 % (11.5-14.5); Red Blood Cell (RBC) Count 4.11 mill/uL (4.20-5.40); White Blood Cell (WBC) Count 7.4 thou/uL (4.8-10.8)
[2018-12-01 07:16] LABS: Anion Gap 10 mmol/L (10-20); BUN (Urea Nitrogen) 10 mg/dL (7.0-18.7); Calc. Creatinine Clearance 150 mL/min (70-130); Calcium 8.9 mg/dL (7.8-10.44); Carbon Dioxide 27 mmol/L (22-29); Chloride 108 mmol/L (98-107); Estimated GFR-MDRD 79; Glucose 81 mg/dL (70-105); Potassium 3.6 mmol/L (3.5-5.1); Sodium 141 mmol/L (136-145)
[2018-12-01] MEDS: Atorvastatin Calcium 20 MG TAB PO SCH (08:46)
[2018-12-01] MEDS: busPIRone HCl 10 MG TAB PO SCH ×3 (08:46→20:34)
[2018-12-01] MEDS: Fluticasone Propionate Nasal Spray 16 gm Bottle NASAL SCH (08:46)
[2018-12-01] MEDS: Polyethylene Glycol 3350 17 GM Packet PO SCH (08:46)
[2018-12-01] MEDS: Carvedilol 25 MG TAB PO SCH ×2 (08:47→20:35)
[2018-12-01] MEDS: Amlodipine 5 MG TAB PO SCH (08:48)
[2018-12-01] MEDS: Lisinopril 20 MG TAB PO SCH ×2 (08:48→20:35)
[2018-12-01] MEDS: Spironolactone 25 MG TAB PO SCH (08:48)
[2018-12-01] MEDS: Meloxicam 15 MG TAB PO SCH (08:48)
[2018-12-01] MEDS: Ketotifen Fumarate 0.025% Ophth Soln 5 ml Bottle EA EYE SCH ×2 (08:49→20:36)
[2018-12-01] MEDS: Lactated Ringer's 1,000 ML IV SCH ×2 (10:40→20:36)
[2018-12-01] MEDS: Ondansetron PF 4 MG/2 ML Vial SLOW IVP PRN ×2 (14:03→20:34)
--- NOTE | 2018-12-01 14:50 | PRG ---
DATE OF SERVICE: 12/01/2018 SUBJECTIVE: Brina Baltazar reports that she had some nausea this morning and took Zofran. She reports pain in her lower abdomen. She has history of diabetes. OBJECTIVE: Today her temperature is 97.7 degrees, 57 heart rate, 119/79. LABORATORY DATA: White count is 7.4, hemoglobin 9.8, essentially stable. Basic metabolic profile is normal. PHYSICAL EXAMINATION: LUNGS: Clear to auscultation. CARDIAC: : Regular rate and rhythm. No murmur or gallop. ABDOMEN: Soft. Upper abdomen, mild tenderness. Lower abdomen has an area where she has a large incisional hernia mesh repair. Probably patient has a large seroma. The patient does not demonstrate any signs of sepsis or infection. I do not think she needs antibiotics. I would recommend that we advance her diet slowly and assure that she tolerates her diet and perhaps she goes home today later today or more likely tomorrow. Dr. Soares is covering. If she continues to have excessive pain or concerns. A repeat CAT scan with oral and IV contrast could be obtained to further evaluate the inflammatory condition in the lower abdomen, which is probably just postoperative. She did have a large amount of omentum and small bowel removed from her hernia sac and this inflammatory changes are probably secondary to that. Job ID: [id number]
[2018-12-01] MEDS: Enoxaparin Sodium 40 MG/0.4 ML SYRINGE SC SCH (20:34)
[2018-12-02] MEDS: traMADol HCl 50 MG TAB PO PRN ×3 (01:59→14:55)
[2018-12-02] MEDS ORDERED: SODIUM OXYBATE PO SCH (03:00)
[2018-12-02] MEDS ORDERED: Morphine 2 MG/ML SYRINGE SLOW IVP PRN (04:42)
[2018-12-02] MEDS ORDERED: Morphine 4 MG/ML VIAL SLOW IVP PRN (04:43)
[2018-12-02] MEDS: Lactated Ringer's 1,000 ML IV SCH ×2 (05:05→14:56)
--- NOTE | 2018-12-02 07:37 | CT ---
CT OF THE ABDOMEN AND PELVIS WITH IV CONTRAST: INDICATION: History of abdominal distention with epigastric abdominal pain status post cholecystectomy, umbilical hernia repair, and hysterectomy. COMPARISON: CT of the abdomen and pelvis dated 11/29/2018. FINDINGS: There is a tiny right pleural effusion. There is bibasilar atelectasis. No focal hepatic lesion is evident. The gallbladder is surgically absent. The pancreas and adrenal glands are normal appearing. The kidneys appear within normal limits. There is circumaortic left re nal vein. No pathologically enlarged lymph nodes are evident. The anterior abdominal cavity, mildly hyperdense, fluid collection within the anterior aspect of the abdomen, underlying the umbilical hernia repair, is stable in size measuring 9.6 cm without overt per ipheral enhancement suggests abscess formation. This is suspicious for either a postoperative fluid collection or hematoma. There is a subcutaneous anterior abdominal wall component seen just inferior and to the left lateral aspect of the umbilical hernia repair measuring 4.9 cm which is stable. No apparent fluid collection is evident within the pelvis. The bladder is decompressed. The rectum and perirectal soft tissues appear within normal limits. Th e small bowel is of normal caliber. No free air is demonstrated. IMPRESSION: 1. Stable anterior abdominal wall fluid collection suspicious for a postoperative fluid collection o r a hematoma. No overt peripheral enhancement is seen to suggest the presence of abscess. Continued followup is recommended. 2. Anterior abdominal wall subcutaneous collection seen along the inferior and left lateral aspect o f the umbilical hernia repair is stable in size measuring 4.9 cm and may reflect a small subcutaneous hematoma or postoperative fluid collection. 3. Small right pleural effusion and bibasilar atelectasis. 4. Other findings as above. POS: [facility]
[2018-12-02] MEDS: Polyethylene Glycol 3350 17 GM Packet PO SCH (08:50)
[2018-12-02] MEDS: Lisinopril 20 MG TAB PO SCH (08:52)
[2018-12-02] MEDS: Spironolactone 25 MG TAB PO SCH (08:53)
[2018-12-02] MEDS: Carvedilol 25 MG TAB PO SCH (08:53)
[2018-12-02] MEDS: Atorvastatin Calcium 20 MG TAB PO SCH (08:53)
[2018-12-02] MEDS: Fluticasone Propionate Nasal Spray 16 gm Bottle NASAL SCH (08:54)
[2018-12-02] MEDS: Amlodipine 5 MG TAB PO SCH (08:54)
[2018-12-02] MEDS: busPIRone HCl 10 MG TAB PO SCH ×2 (09:00→14:56)
[2018-12-02] MEDS: Meloxicam 15 MG TAB PO SCH (09:00)
[2018-12-02] MEDS: Ketotifen Fumarate 0.025% Ophth Soln 5 ml Bottle EA EYE SCH (09:01)
[2018-12-02] MEDS ORDERED: Iopamidol 370 76% 50 ML VIAL FS ONE (10:26)
[2018-12-02] MEDS ORDERED: ISOVUE-370 76%-LOCM 1 ML ONE (10:26)
[2018-12-02 16:18] VITALS: TEMP 98.2
[2018-12-02 17:13] VITALS: BP 111/74
== END 2018-12-02 19:30 | disposition home or self-care (01) | DRG 920 ==
LOC: SCSER 23:07 → ERHOLD 11-29 07:50 → T4-A 11-29 09:44
PROVIDERS: ADMIT Specialist; ATTEND Specialist
DX: K91.872 Postprocedural seroma of a digestive system organ or structure following a digestive system procedure (principal); I42.9 Cardiomyopathy, unspecified; E66.01 Morbid (severe) obesity due to excess calories; Z68.36 Body mass index [BMI] 36.0-36.9, adult; I10 Essential (primary) hypertension; E78.5 Hyperlipidemia, unspecified; Y83.8 Other surgical procedures as the cause of abnormal reaction of the patient, or of later complication, without mention of misadventure at the time of the procedure; G47.419 Narcolepsy without cataplexy; E11.9 Type 2 diabetes mellitus without complications; G47.30 Sleep apnea, unspecified; D50.9 Iron deficiency anemia, unspecified; Z98.890 Other specified postprocedural states; Z79.84 Long term (current) use of oral hypoglycemic drugs; Z79.899 Other long term (current) drug therapy; Z88.8 Allergy status to other drugs, medicaments and biological substances; Z83.3 Family history of diabetes mellitus
CPT/HCPCS: 36415; 36416; 71045; 74177; 80048; 80053; 83036; 83605; 83690; 83880; 84484; 84703; 85025; 86850; 86900; 86901; 87040; 93005; 96361; 96365; 96366; 96367; 96375; 96376; J1650; J2270; J2405; J2543; J3010; J7050; Q0162; Q9966; Q9967

== ENCOUNTER 2018-12-27 13:57 | Outpatient (CLI) | payer OTHER ==
--- NOTE | 2018-12-27 14:39 | RAD ---
LEFT LEG TWO VIEWS: HISTORY: Left leg pain. Left mid shaft tibial pain. FINDINGS: The left tibia and fibula are intact. No bony abnormality is seen. POS: [facility]
== END 2018-12-27 13:58 | disposition home or self-care (01) ==
LOC: BICRAD 13:57
PROVIDERS: ATTEND Family Medicine
DX: M79.605 Pain in left leg (principal)

== ENCOUNTER 2019-01-09 21:39 | Emergency (ER) | payer OTHER ==
[2019-01-09 22:15] LABS: #Eosinphils 0.2 thou/uL (0.0-0.7); #Lymphocytes 2.1 thou/uL (1.20-3.40); #Monocytes 0.6 thou/uL (0.11-0.59); #Neutrophils 4.7 thou/uL (1.40-6.50); %Eosinophils 2.8 % (0.0-10.0); %Lymphocytes 28.1 % (21.0-51.0); %Monocytes 7.8 % (0.0-10.0); %Neutrophils 61.2 % (42.0-75.0); Hemoglobin 11.6 g/dL (12.0-16.0); Mean Corpuscular Hemoglobin 23.9 pg (27.0-31.0); Mean Corpuscular Volume 74.7 fL (78.0-98.0); Mean Platelet Volume 8.1 fL (7.4-10.4); Platelet Count 194 thou/uL (130-400); RBC Distribution Width 14.1 % (11.5-14.5); Red Blood Cell (RBC) Count 4.85 mill/uL (4.20-5.40); White Blood Cell (WBC) Count 7.6 thou/uL (4.8-10.8)
[2019-01-09 22:36] LABS: ALT (SGPT) 14 U/L (8-55); AST (SGOT) 17 U/L (5-34); Albumin 4.2 g/dL (3.5-5.0); Alkaline Phosphatase 104 U/L (40-150); Anion Gap 12 mmol/L (10-20); BUN (Urea Nitrogen) 12 mg/dL (7.0-18.7); Bilirubin, Total 0.3 mg/dL (0.2-1.2); Calc. Creatinine Clearance 0 mL/min (70-130); Calcium 8.8 mg/dL (7.8-10.44); Carbon Dioxide 24 mmol/L (22-29); Chloride 110 mmol/L (98-107); Estimated GFR-MDRD 82; Globulin 2.9 g/dL (2.4-3.5); Glucose 100 mg/dL (70-105); Lipase 21 U/L (8-78); Potassium 3.5 mmol/L (3.5-5.1); Protein, Total 7.1 g/dL (6.0-8.3); Sodium 142 mmol/L (136-145)
[2019-01-09 23:32] LABS: Bilirubin Negative (Negative); Blood, Urine Moderate (Negative); Clarity CLOUDY (Clear); Glucose, Urine (Dipstick) Negative (Negative); Leukocyte Negative (Negative); Nitrite Negative (Negative); Protein, Urine (Dipstick) 30 mg/dL (Neg-Trace); Specific Gravity, Urine 1.019 (1.002-1.036); Urobilinogen 0.2 mg/dL (0.2-1.0)
[2019-01-09 23:35] LABS: Bacteria/HPF None Seen HPF (None Seen); Hyaline Casts/LPF 0-3 HYALINE CAST LPF (0-3 Hyaline); Pathc Cast-AUWi Flag 0.54 (0-2.49); Pregnancy Test - Urine (BHCG) Negative (Negative); Pregu Control Background? CLEAR/WHITE (CLR/WHITE); Pregu Control Bar Appear? YES (CONTROL BAR); Specific Gravity 1.019 (1.002-1.036); WBC/HPF 0-3 HPF (0-3)
--- NOTE | 2019-01-10 07:41 | CT ---
CT ABDOMEN AND PELVIS WITH IV CONTRAST: Date: 01/10/19 HISTORY: Left-sided abdominal pain. FINDINGS: Comparison made with exam of 12/02/18. Mild atelectatic changes are seen at the lung bases. The patient is post cholecystectomy. The liver, spleen, pancreas, adrenal glands, and kidneys are unremarkable. A circumaortic left renal vein is aga in seen. There has been interval reduction in the size of the lower anterior abdominal cavity fluid collection since the last exam measuring 7.5 x 2.5 cm (9.6 x 6.2 cm previously). No air or enhancing peripheral wall is seen within this fluid. The other left lower anterior abdominal wall subcutaneous collection noted on the previous exam along the inferior and lateral aspect of the umbilical hernia repair site has resolved in the interim. Uterus is present. IMPRESSION: Interval reduction in lower anterior abdominal fluid collection since 12/02/18, likely postoperative fluid collection/hematoma/seroma. POS: DENIZA
[2019-01-10] MEDS ORDERED: ISOVUE-370 76%-LOCM 1 ML ONE (16:48)
== END 2019-01-10 03:15 | disposition home or self-care (01) ==
LOC: ERS 21:39
DX: G89.18 Other acute postprocedural pain (principal); R10.32 Left lower quadrant pain; E78.5 Hyperlipidemia, unspecified; I11.0 Hypertensive heart disease with heart failure; I50.9 Heart failure, unspecified; F41.9 Anxiety disorder, unspecified; F32.9 Major depressive disorder, single episode, unspecified; Z79.899 Other long term (current) drug therapy; Z79.82 Long term (current) use of aspirin; Z79.84 Long term (current) use of oral hypoglycemic drugs; Z79.51 Long term (current) use of inhaled steroids
CPT/HCPCS: 36415; 74177; 80053; 81003; 81015; 81025; 83690; 85025

== ENCOUNTER 2019-01-25 19:44 | Emergency (ER) | payer OTHER ==
[2019-01-25 20:01] LABS: #Eosinphils 0.3 thou/uL (0.0-0.7); #Lymphocytes 2.4 thou/uL (1.20-3.40); #Monocytes 0.6 thou/uL (0.11-0.59); #Neutrophils 5.3 thou/uL (1.40-6.50); %Basophils 0.2 % (0.0-1.0); %Eosinophils 3.4 % (0.0-10.0); %Lymphocytes 27.7 % (21.0-51.0); %Neutrophils 61.7 % (42.0-75.0); Hemoglobin 11.8 g/dL (12.0-16.0); Mean Corpuscular HGB CONC 31.7 g/dL (32.0-36.0); Mean Corpuscular Hemoglobin 23.3 pg (27.0-31.0); Mean Corpuscular Volume 73.5 fL (78.0-98.0); Mean Platelet Volume 8.3 fL (7.4-10.4); Platelet Count 172 thou/uL (130-400); Red Blood Cell (RBC) Count 5.05 mill/uL (4.20-5.40); White Blood Cell (WBC) Count 8.6 thou/uL (4.8-10.8)
[2019-01-25] MEDS ORDERED: Nitroglycerin 2% Ointment 1 INCH/1 GM Packet ONE (20:20)
[2019-01-25] MEDS ORDERED: Aspirin 325 MG TAB ONE (20:20)
[2019-01-25 20:25] LABS: ALT (SGPT) 12 U/L (8-55); AST (SGOT) 15 U/L (5-34); Albumin 4.2 g/dL (3.5-5.0); Alkaline Phosphatase 103 U/L (40-150); Anion Gap 12 mmol/L (10-20); BUN (Urea Nitrogen) 12 mg/dL (7.0-18.7); Bilirubin, Total 0.3 mg/dL (0.2-1.2); CK (CPK) 166 U/L (29-168); Calc. Creatinine Clearance 0 mL/min (70-130); Calcium 8.9 mg/dL (7.8-10.44); Carbon Dioxide 27 mmol/L (22-29); Chloride 106 mmol/L (98-107); Estimated GFR-MDRD 74; Globulin 2.9 g/dL (2.4-3.5); Glucose 131 mg/dL (70-105); Potassium 3.6 mmol/L (3.5-5.1); Protein, Total 7.1 g/dL (6.0-8.3); Sodium 141 mmol/L (136-145)
--- NOTE | 2019-01-25 20:37 | RAD ---
CHEST ONE VIEW: 01/25/19 INDICATION: History of chest pain. COMPARISON: Prior exam dated 11/29/18. FINDINGS: There is stable cardiomegaly. Lungs are clear. No pleural effusion or pneumothorax evident. No acute osseous abnormality is evident. IMPRESSION: No acute abnormality. POS: BH
[2019-01-25] MEDS ORDERED: Ondansetron PF 4 MG/2 ML Vial ONE (20:41)
[2019-01-25] MEDS ORDERED: Ondansetron ODT 8 MG TAB ONE (20:43)
[2019-01-25 23:26] LABS: Troponin I Less than 0.010 ng/mL (< 0.028)
== END 2019-01-25 23:58 | disposition home or self-care (01) ==
LOC: ERS 19:44
DX: R07.89 Other chest pain (principal); K21.9 Gastro-esophageal reflux disease without esophagitis; E78.5 Hyperlipidemia, unspecified; I11.0 Hypertensive heart disease with heart failure; I50.9 Heart failure, unspecified; F41.9 Anxiety disorder, unspecified; F32.9 Major depressive disorder, single episode, unspecified; Z79.899 Other long term (current) drug therapy
CPT/HCPCS: 36415; 71045; 80053; 82550; 83880; 84484; 85025; 93005; J2405

== ENCOUNTER 2019-04-05 11:11 | Emergency (ER) | payer OTHER ==
[2019-04-05 11:50] LABS: #Eosinphils 0.2 thou/uL (0.0-0.7); #Lymphocytes 2.3 thou/uL (1.20-3.40); #Monocytes 0.6 thou/uL (0.11-0.59); #Neutrophils 4.2 thou/uL (1.40-6.50); %Basophils 0.1 % (0.0-1.0); %Eosinophils 2.5 % (0.0-10.0); %Lymphocytes 31.7 % (21.0-51.0); %Monocytes 8.6 % (0.0-10.0); %Neutrophils 57.2 % (42.0-75.0); Hemoglobin 11.3 g/dL (12.0-16.0); Mean Corpuscular HGB CONC 31.7 g/dL (32.0-36.0); Mean Corpuscular Hemoglobin 22.4 pg (27.0-31.0); Mean Corpuscular Volume 70.7 fL (78.0-98.0); Mean Platelet Volume 8.5 fL (7.4-10.4); Platelet Count 207 thou/uL (130-400); RBC Distribution Width 15.2 % (11.5-14.5); Red Blood Cell (RBC) Count 5.03 mill/uL (4.20-5.40); White Blood Cell (WBC) Count 7.3 thou/uL (4.8-10.8)
[2019-04-05 11:59] LABS: Bacteria/HPF 1+ HPF (None Seen); Bilirubin Negative (Negative); Blood, Urine Trace (Negative); Clarity Clear (Clear); Glucose, Urine (Dipstick) Normal (Negative); Leukocyte Negative Leu/uL (Negative); Nitrite Negative (Negative); Protein, Urine (Dipstick) 50 mg/dL (Neg-Trace); RBC/HPF 0-3 HPF (0-3); Urobilinogen Normal mg/dL (Less than 2); WBC/HPF 0-3 HPF (0-3)
[2019-04-05 12:13] LABS: ALT (SGPT) 20 U/L (8-55); AST (SGOT) 18 U/L (5-34); Albumin 4.2 g/dL (3.5-5.0); Alkaline Phosphatase 99 U/L (40-150); Anion Gap 10 mmol/L (10-20); BUN (Urea Nitrogen) 11 mg/dL (7.0-18.7); Bilirubin, Total 0.3 mg/dL (0.2-1.2); Calc. Creatinine Clearance 0 mL/min (70-130); Calcium 8.9 mg/dL (7.8-10.44); Carbon Dioxide 25 mmol/L (22-29); Chloride 108 mmol/L (98-107); Estimated GFR-MDRD Greater than 90; Globulin 3.2 g/dL (2.4-3.5); Glucose 80 mg/dL (70-105); Lipase 27 U/L (8-78); Potassium 3.8 mmol/L (3.5-5.1); Protein, Total 7.4 g/dL (6.0-8.3); Sodium 139 mmol/L (136-145)
[2019-04-05] MEDS ORDERED: Metoclopramide HCl 10 MG/2 ML VIAL ONE (12:20)
[2019-04-05] MEDS ORDERED: Sodium Chloride 0.9% (PF) 10 ML VIAL FS PRN (12:33)
[2019-04-05 12:35] LABS: BHCG - Serum Negative (NEGATIVE); Pregs Control Background? CLEAR/WHITE (CLR/WHITE); Pregs Control Bar Appear? YES (CONTROL BAR)
[2019-04-05] MEDS ORDERED: Pantoprazole 40 MG VIAL IVP SCH (12:45)
--- NOTE | 2019-04-05 13:26 | ULT ---
US Gallbladder RUQ History: Right upper quadrant pain Comparison: CT abdomen and pelvis same day Findings: Real-time grayscale and color evaluation of the right upper quadrant of the abdomen was per formed. Mild diffuse increased hepatic echotexture. Visualized portion of the pancreas aorta and IVC are unre markable. Prior cholecystectomy. Common bile duct measures 6 mm. No hepatic mass. Right kidney measures 11.7 x 5.4 x 7 cm without mass, hydronephrosis, or abnormal ca lcifications. Impression: Diffuse hepatic steatosis otherwise unremarkable exam.
--- NOTE | 2019-04-05 13:35 | CT ---
CT ABDOMEN AND PELVIS WITH IV CONTRAST: Date: 04/05/19 Multiple axial tomograms obtained with IV enhancement. INDICATION: Right abdominal pain. Comparison made to CT abdomen and pelvis dated 01/10/19. FINDINGS: Image through the lung bases reveals streaky atelectasis in the right lung base posteriorly. Liver, s pleen, and pancreas are unremarkable. Post cholecystectomy clips are noted. Stomach and duodenum unre markable. Adrenal glands are normal. Kidneys unremarkable. Small bowel loops appear normal caliber. The appendix is identified and shows gas within a normal appearing appendix. There is abnormal density in the right lower quadrant which does abut the cecum. This appears to be r elated to the right adnexa. There is a low density circumscribed structure measuring 2.5 cm, possibly representing ovarian cyst. There is surrounding fluid and/or inflammatory change. Other consideratio ns as to tubo-ovarian abscess is not excluded. The uterus is unremarkable. The left adnexa is unremarkable. IMPRESSION: 1. Abnormal density in the right adnexa with possible cystic structure as described above. Ectopic p regnancy should be excluded with serum HCG level. Other considerations such as tubo-ovarian abscess o r ovarian cyst with surrounding fluid are considerations. POS: OFF
--- NOTE | 2019-04-05 14:33 | ULT ---
US Pelvic Transvag History: Right adnexal pain Comparison: CT same day Findings: Real-time grayscale, color, and spectral analysis of the pelvis was performed transabdomina l and transvaginal approach.. Uterus appears normal measuring 10.7 x 5.4 x 5.4 cm. Ovaries are not delineated. No adnexal abnormality is appreciated. The right ovary is abnormally superior and lateral in the pelv is just underneath the right rectus muscle with a 2.6 cm cyst with adequate vascular flow Small volume free fluid in the pelvis. Impression: Corresponding to the CT finding is the right ovary with a 2.6 cm complex cyst.
[2019-04-05] MEDS ORDERED: Ketorolac Tromethamine 30 MG/ML VIAL ONE (15:01)
[2019-04-07 00:29] LABS: Chlamydia by PCR Not Detected (NotDetected); GC by PCR Not Detected (NotDetected)
--- NOTE | 2019-04-09 00:51 | EKG ---
Test Reason : Blood Pressure : / mmHG Vent. Rate : 073 BPM Atrial Rate : 073 BPM P-R Int : 142 ms QRS Dur : 094 ms QT Int : 418 ms P-R-T Axes : 006 -10 264 degrees QTc Int : 460 ms Normal sinus rhythm Possible Left atrial enlargement Abnormal ECG When compared with ECG of 25-JAN-2019 Lateral T wave inversion is new Confirmed by DEBORAH ALBRECHT ([id number]), tape editor LEO GREENE ([id number] on 04/09/2019 12:50:27 AM Referred By: Confirmed By:DEBORAH ALBRECHT
== END 2019-04-05 15:34 | disposition home or self-care (01) ==
LOC: ERS 11:11
DX: N83.201 Unspecified ovarian cyst, right side (principal); K21.9 Gastro-esophageal reflux disease without esophagitis; I11.0 Hypertensive heart disease with heart failure; I50.9 Heart failure, unspecified; F41.9 Anxiety disorder, unspecified; F32.9 Major depressive disorder, single episode, unspecified; Z79.84 Long term (current) use of oral hypoglycemic drugs; Z79.899 Other long term (current) drug therapy
CPT/HCPCS: 36415; 74177; 76705; 76856; 80053; 81003; 81015; 83690; 84484; 84703; 85025; 87480; 87491; 87510; 87591; 87660; 93005; 96365; 96366; 96372; 96375; C9113; J0500; J1885; J2765